=== PATIENT | male | born 1970 | race Caucasian/White ===

== ENCOUNTER 2017-02-22 13:57 | Inpatient (IN) | payer MEDICAID ==
[~2017-02-22] VITALS: Ht 170.2 cm; Wt 100.0 kg
--- NOTE | 2017-02-22 14:11 | ERA ---
ER Documentation Chief Complaint Date/Time DATE: 02/22/17 TIME: 14:11 Chief Complaint dizziness, nausea, vomiting HPI The patient is a 46-year-old male, presenting to the ER because of acute dizziness, associated with nausea, vomiting intermittently for 1 week and headache for the last 2 days. He denies fever, chills, neck pain, chest pain, dyspnea, abdominal pain, dysuria, diarrhea. He does not smoke nor drink nor does illicit drug Past medical history: Diabetes mellitus, hypertension Past surgical history: None ROS All systems reviewed and are negative except as per history of present illness. Medications Home Meds Active Scripts Meclizine Hcl* (Antivert*) 12.5 Mg Tab, 25 MG PO Q6H Y for DIZZINESS, #20 TAB Prov:ANNA BOWEN MD 02/22/17 Reported Medications Metoprolol Tartrate* (Lopressor*) Unknown Strength Tab, PO BID, #60 TAB 02/22/17 Insulin Glargine* (Lantus*) 100 Unit/Ml Soln, 20 UNIT SC QAM, #1 VIAL 02/22/17 Clopidogrel Bisulfate (Clopidogrel) 75 Mg Tablet, 75 MG PO DAILY, #30 TAB 02/22/17 Metformin Hcl* (Metformin Hcl*) 1,000 Mg Tablet, 1000 MG PO WITH BREAKFAST DINNE , #30 TAB 02/22/17 Lisinopril* (Lisinopril*) 10 Mg Tablet, 10 MG PO DAILY, #30 TAB 02/22/17 Allergies Allergies: Coded Allergies: No Known Allergy (Unverified , 02/22/17) Physical Exam Vitals Vital Signs Date Time Temp Pulse Resp B/P Pulse Ox O2 Delivery O2 Flow Rate FiO2 02/22/17 17:00 80 160/110 02/22/17 16:00 80 16 159/119 99 Room Air 02/22/17 15:39 80 16 172/105 99 Room Air 02/22/17 14:03 98.2 100 20 197/122 99 Physical Exam Const: No acute distress. Head: Atraumatic. Eyes: Normal Conjunctiva. ENT: Normal External Ears, Nose and Mouth. Neck: Full range of motion. No meningismus. Resp: Clear to auscultation bilaterally. Cardio: Regular rate and rhythm, no murmurs. Abd: Soft, non distended, normal bowel sounds, non tender. Skin: No petechiae or rashes. Back: No midline or flank tenderness. Ext: No cyanosis, or edema. Neur: Awake and alert. No focal deficit Psych: Normal Mood and Affect. Result Diagram: 02/22/17 1430 02/22/17 1430 Results 24 hrs Laboratory Tests Test 02/22/17 14:30 White Blood Count 13.010^3/ul Red Blood Count 5.4310^6/ul Hemoglobin 15.6g/dl Hematocrit 46.0% Mean Corpuscular Volume 84.7fl Mean Corpuscular Hemoglobin 28.7pg Mean Corpuscular Hemoglobin Concent 33.9g/dl Red Cell Distribution Width 13.6% Platelet Count 12149^3/UL Mean Platelet Volume 11.2fl Neutrophils % 51.8% Lymphocytes % 37.8% Monocytes % 7.3% Eosinophils % 2.5% Basophils % 0.4% Nucleated Red Blood Cells % 0.0/100WBC Neutrophils # 6.710^3/ul Lymphocytes # 4.910^3/ul Monocytes # 1.010^3/ul Eosinophils # 0.310^3/ul Basophils # 0.110^3/ul Nucleated Red Blood Cells # 0.010^3/ul Prothrombin Time 13.7Sec Prothrombin Time Ratio 1.1 INR International Normalized Ratio 1.05 Activated Partial Thromboplast Time 29.2Sec Sodium Level 140mmol/L Potassium Level 4.3mmol/L Chloride Level 107mmol/L Carbon Dioxide Level 15mmol/L Anion Gap 22 Blood Urea Nitrogen 14mg/dl Creatinine 0.73mg/dl Glucose Level 220mg/dl Calcium Level 9.6mg/dl Troponin I < 0.012ng/ml Current Medications Medications (Trade) Dose Ordered Sig/Jeffery Route PRN Reason Start Time Stop Time Status Last Admin Dose Admin Ondansetron HCl (Zofran Inj) 4 mg ONCE STAT IV 02/22/17 14:16 02/22/17 14:18 DC 02/22/17 14:32 Meclizine HCl (Antivert) 25 mg ONCE ONCE PO 02/22/17 14:30 02/22/17 14:31 DC 02/22/17 14:32 Labetalol HCl (Labetalol) 20 mg ONCE ONCE IV 02/22/17 16:00 02/22/17 16:01 DC 02/22/17 15:54 Labetalol HCl (Labetalol) 20 mg ONCE ONCE IV 02/22/17 16:30 02/22/17 16:31 DC Ondansetron HCl (Zofran Inj) 4 mg ONCE STAT IV 02/22/17 17:56 02/22/17 17:57 DC Clopidogrel Bisulfate (plaVIX) 75 mg DAILY PO 02/23/17 09:00 UNV Insulin Glargine (Lantus) 20 unit QAM SC 02/23/17 09:00 UNV Lisinopril (Zestril) 10 mg DAILY PO 02/23/17 09:00 UNV Metformin HCl (Glucophage) 1,000 mg WITH BREAKFAST DINNE PO 02/23/17 08:00 UNV Metoprolol Tartrate (Lopressor) 25 mg BID PO 02/22/17 21:00 UNV Hydralazine HCl (Apresoline) 10 mg Q6H PRN IV sbp>160mmhg 02/22/17 18:30 UNV Insulin Aspart (Novolog Insulin Pen) NOVOLOG *MODERATE* ALGORITHM WITH MEALS BEDTIME SC 02/22/17 21:00 UNV Miscellaneous Information (* Miscellaneous Pharmacy Order) HYPOGLYCEMIA PROTOCOL w... ONCE ONCE XX 02/22/17 18:30 02/22/17 18:31 UNV Miscellaneous Information (* Miscellaneous Pharmacy Order) Discontinue all previ... ONCE ONCE XX 02/22/17 18:30 02/22/17 18:31 UNV Docusate Sodium (Colace) 100 mg BID PO 02/22/17 21:00 UNV Ondansetron HCl (Zofran Inj) 4 mg Q6H PRN IV NAUSEA AND/OR VOMITING 02/22/17 18:30 UNV Acetaminophen (Tylenol Tab) 650 mg Q6H PRN PO PAIN AND OR ELEVATED TEMP 02/22/17 18:30 UNV Famotidine (Pepcid Iv) 20 mg BID IV 02/22/17 18:30 UNV Procedures/[address] [address] Radiology Main Line: [phone] DIAGNOSTIC IMAGING REPORT Patient: RAY VICKERS : 1970 Age: 46 Sex: M MR #: [id number] [facility] #: [id number] DOS: 02/22/17 1416 Ordering MD: ANNA BOWEN MD Location: E/R Room/Bed: PROCEDURE: CT Brain without. CLINICAL INDICATION: Syncope TECHNIQUE: A CT of the brain was performed on a multi-slice CT scanner utilizing axial sections from the skull base through the vertex without contrast. Coronal and sagittal reconstructed images were provided. One or more of the following does reduction techniques were used: Automated exposure control; adjustment of the mA and/or kV according to patient size; use of the aorta of reconstruction technique. Images were reviewed on a high-resolution PACS workstation. The exam CTDI = 44.33 mGy. The exam DLP = 720.23 mGy-cm. COMPARISON: None available FINDINGS: The ventricles and sulci are symmetric and normal in size and morphology. There is no evidence of intracranial hemorrhage, mass effect, edema or midline shift. No abnormal intra-axial or extra-axial fluid collections are seen. The helms/white matter differentiation is well preserved. The osseous structures and visualized sinuses are unremarkable. The mastoid air cells are clear. The surrounding soft tissue scalp and bony calvarium are intact and normal. IMPRESSION: 1. Unremarkable CT brain. RPTAT: KK .Jay Samson MD, MD Date Time Electronically viewed and signed by .Jay Samson MD, MD on 2016 15:33 .B/ CC: ANNA BOWEN MD EKG: Read by emergency physician Rate/Rhythm: Normal Sinus Rhythm 100 beats/min QRS, ST, T-waves: No ST elevation, no T inversion Impression: Normal EKG MEDICAL MAKING DECISION: The patient is a 46-year-old male, presenting with acute dizziness of unclear etiology, acute accelerated hypertension. He was treated with Zofran 4 mg IV 2 for nausea, Antivert 25 mg p.o. for dizziness, labetalol 20 mg IV 2 for acute accelerated hypertension with good response. However patient remained nauseated and dizzy. The differential diagnoses considered include but are not limited to central causes such as cerebellar infarct, cerebellar hemorrhage, cerebellar tumor, acoustic neuroma, peripheral causes such as benign positional vertigo, labyrinthitis, medication, Meniere's disease. Departure Diagnosis: Primary Impression: Dizziness Additional Impression: Accelerated hypertension Condition: Stable Comments I discussed the findings with the patient. I discussed the patient with the hospitalist who was made aware of the lab, the treatment, the patient condition. The patient is admitted to [facility] at 6 pm ANNA BOWEN MD Feb 22, 2017 14:11
[2017-02-22] MEDS ORDERED: ONDANSETRON 4 MG INJ IV STA ×2 (14:16→17:56)
[2017-02-22] MEDS ORDERED: MECLIZINE 12.5 MG TAB PO ONE (14:30)
[2017-02-22] MEDS ORDERED: LISI10TA2 PO (14:30)
[2017-02-22] MEDS ORDERED: METF1000 PO (14:30)
[2017-02-22] MEDS ORDERED: LANT3I SC (14:31)
[2017-02-22] MEDS ORDERED: CLOP75TA27 PO (14:31)
[2017-02-22] MEDS ORDERED: METO-448 PO (14:42)
[2017-02-22 14:43] LABS: ADD SCAN DIFF NO
[2017-02-22 14:46] LABS: BASOPHIL # 0.1 10^3/ul (0.0-0.1); BASOPHILS % 0.4 % (0.0-2.0); EOSINOPHILS # 0.3 10^3/ul (0.0-0.5); EOSINOPHILS % 2.5 % (0.0-7.0); HEMOGLOBIN 15.6 g/dl (14.0-18.0); LYMPHOCYTES # 4.9 10^3/ul (0.8-2.9); LYMPHOCYTES % 37.8 % (15.0-51.0); MEAN CORPUSCULAR HEMOGLOBIN 28.7 pg (29.0-33.0); MEAN CORPUSCULAR HGB CONC 33.9 g/dl (32.0-37.0); MEAN CORPUSCULAR VOLUME 84.7 fl (82.0-101.0); MEAN PLATELET VOLUME 11.2 fl (7.4-10.4); MONOCYTES % 7.3 % (0.0-11.0); NEUTROPHIL # 6.7 10^3/ul (1.6-7.5); NEUTROPHILS % 51.8 % (39.0-77.0); PLATELET COUNT 232 10^3/UL (140-415); RED BLOOD COUNT 5.43 10^6/ul (4.70-6.10); RED CELL DISTRIBUTION WIDTH 13.6 % (11.5-14.5)
[2017-02-22 14:56] LABS: CHLORIDE 107 mmol/L (97-110); POTASSIUM 4.3 mmol/L (3.5-5.1); SODIUM 140 mmol/L (135-144)
[2017-02-22 14:57] LABS: INR 1.05; PROTIME 13.7 Sec (12.2-14.2); PT RATIO 1.1
[2017-02-22 14:58] LABS: PARTIAL THROMBOPLASTIN TIME 29.2 Sec (25.0-35.0)
[2017-02-22 14:59] LABS: ANION GAP 22 (8-16); BLOOD UREA NITROGEN 14 mg/dl (7-20); CARBON DIOXIDE 15 mmol/L (21-31); CREATININE 0.73 mg/dl (0.61-1.24); GLUCOSE 220 mg/dl (70-220)
[2017-02-22 15:00] LABS: CALCIUM 9.6 mg/dl (8.4-10.2)
[2017-02-22 15:29] LABS: TROPONIN-I < 0.012 ng/ml (0.00-0.12)
--- NOTE | 2017-02-22 15:34 | RADRPT ---
PROCEDURE: CT Brain without. CLINICAL INDICATION: Syncope TECHNIQUE: A CT of the brain was performed on a multi-slice CT scanner utilizing axial sections fr om the skull base through the vertex without contrast. Coronal and sagittal reconstructed images w ere provided. One or more of the following does reduction techniques were used: Automated exposure control; adjustment of the mA and/or kV according to patient size; use of the aorta of reconstructi on technique. Images were reviewed on a high-resolution PACS workstation. The exam CTDI = 44.33 mGy . The exam DLP = 720.23 mGy-cm. COMPARISON: None available FINDINGS: The ventricles and sulci are symmetric and normal in size and morphology. There is no evidence of i ntracranial hemorrhage, mass effect, edema or midline shift. No abnormal intra-axial or extra-axial fluid collections are seen. The helms/white matter differentiation is well preserved. The osseous structures and visualized sinuses are unremarkable. The mastoid air cells are clear. Th e surrounding soft tissue scalp and bony calvarium are intact and normal. IMPRESSION: 1. Unremarkable CT brain. RPTAT: KK .Jay Samson MD, MD Date Time Electronically viewed and signed by .Jay Samson MD, MD on 02/22/2017 15:33 .B/
[2017-02-22] MEDS ORDERED: LABETALOL HCL 20MG INJ IV ONE ×2 (16:00→16:30)
[2017-02-22] MEDS ORDERED: MECL12.574 PO (16:23)
[2017-02-22] MEDS ORDERED: ACETAMINOPHEN 325 MG TAB PO PRN (18:30)
[2017-02-22] MEDS ORDERED: SOD CHLORIDE 0.9% 1,000 ML IV SCH (19:00)
[2017-02-22] MEDS ORDERED: GLUCAGON 1 MG INJ IM PRN (19:30)
[2017-02-22] MEDS ORDERED: GLUCOSE GEL 15 GRAM TUBE BUCCAL PRN (19:30)
[2017-02-22] MEDS ORDERED: GLUCOSE GEL 15 GRAM TUBE PO PRN ×2 (19:30)
[2017-02-22] MEDS ORDERED: DEXTROSE 50% 50 ML SYRINGE IV PRN ×2 (19:30)
--- NOTE | 2017-02-22 19:38 | RADRPT ---
PROCEDURE: XR Chest. CLINICAL INDICATION: Chest pain TECHNIQUE: AP Portable chest. COMPARISON: None available FINDINGS: The soft tissues and bones are remarkable for thoracic spondylosis and bilateral acromioclavicular o steoarthropathy. A 5 mm calcified granuloma is noted in the left costophrenic angle. This compatib le with prior exposure to granulomatous disease.. No focal infiltrates, masses, or effusions are no gonzales. The mediastinum and heart are normal. No pneumothorax is present. IMPRESSION: 1. No radiographic evidence for acute cardiopulmonary disease. 2. 5 mm calcified granuloma in the left costophrenic angle. 3. 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 RPTAT: HDC .Dara Leblanc MD, Date Time Electronically viewed and signed by .Dara Leblanc MD, on 02/22/2017 19:38 .C/
[2017-02-22] MEDS: FAMOTIDINE 20 MG INJ IV SCH (19:59)
--- NOTE | 2017-02-22 20:04 | RADRPT ---
PROCEDURE: Carotid ultrasound CLINICAL INDICATION: Dizziness, carotid bruits TECHNIQUE: Sherman scale, color doppler, spectral doppler ultrasound of the bilateral carotid and tomeka tebral arteries. This study indirectly references the measurement of the distal ICA diameter as the denominator for s tenosis measurement. Validated velocity measurements with angiographic measurements, velocity criter ia are extrapolated from diameter data as defined by: *Cartoid artery stenosis: sherman-scale and Doppl er US diagnosis. Society of Radiologists in Ultrasound Consensus Conference. Radiology 2003; 229: 34 0-346. SRU Consensus Conference Criteria for the Diagnosis of Carotid Artery Stenosis* Degree of Stenosis, % ICA PSV, cm/sec Plaque Estimate, % ICA/CCA PSV Ratio Normal <125 None <2.0 <50 <125 <50 <2.0 50 69 125-230 >50 2.0-4.0 >70 but less than near occlusion >230 >50 <4.0 Near occlusion High, low, or undetectable Visible Variable Total occlusion Undetectable Visible, no detectable lumen Not applicable COMPARISON: No prior studies are available for comparison. FINDINGS: Location Right CCA98 cm/sec Prox ICA 52 cm/sec Mid ICA41 cm/sec Dist ICA55 cm/sec ECA79 cm/sec ICA/CCA0.6 Left CCA96 cm/sec Prox ICA 61 cm/sec Mid ICA62 cm/sec Dist ICA63 cm/sec ECA94 cm/sec ICA/CCA0.7 Plaque burden: Noncalcified plaques are present within the right carotid bulb and left common caroti d artery which do not appear to be hemodynamically significant. Antegrade flow is seen within the vertebral arteries bilaterally. IMPRESSION: Noncalcified plaques are present within the right carotid bulb and left common carotid artery which do not appear to be hemodynamically significant. RPTAT: AADD .El Castro MD, Date Time Electronically viewed and signed by .El Castro MD, on 02/22/2017 20:04 .B/
[2017-02-22] MEDS: METOPROLOL 25 MG TAB PO SCH (21:00)
[2017-02-22] MEDS: INSULIN ASPART [NOVOLOG] 3 ML PEN SC SCH (21:00)
[2017-02-22] MEDS: ONDANSETRON 4 MG INJ IV PRN (21:41)
[2017-02-22] MEDS: DOCUSATE SODIUM 100 MG CAP PO SCH (22:37)
[2017-02-22 23:30] VITALS: TEMP 98.1
[2017-02-22] MEDS ORDERED: METOCLOPRAMIDE 10 MG INJ IV PRN (23:30)
[2017-02-22 23:40] LABS: CREATINE KINASE 83 IU/L (23-200)
[2017-02-22 23:49] LABS: CK-MB 0.47 ng/ml (0.0-2.4)
[2017-02-22 23:56] LABS: TROPONIN-I < 0.010 ng/ml (0.00-0.12)
[2017-02-23] VITALS (10 sets, daily range): BP systolic 112–189; BP diastolic 56–132; PULSE 93–115; RESP 16–20; Ht 170.2 cm; Wt 100.0 kg
[2017-02-23] MEDS ORDERED: LABETALOL HCL 20MG INJ IV ONE (00:30)
[2017-02-23] MEDS: ONDANSETRON 4 MG INJ IV PRN ×2 (04:37→12:40)
[2017-02-23] MEDS: hydrALAzine 20 MG INJ IV PRN (04:37)
--- NOTE | 2017-02-23 07:19 | HP ---
DATE OF ADMISSION: 02/22/2017 PRESENTING COMPLAINT: Dizziness, nausea, vomiting. HISTORY OF PRESENTING COMPLAINT: Mr. Hernandez is a 46-year-old male with a past medical history of high blood pressure and diabetes as well as two TIAs in the past who presents to the emergency room today with occipital headaches and dizziness that has been going on for a week intermittently and now nausea, associated occasional vomiting that has been going on for the last 3 days. The patient came in today at the behest of his family when symptoms did not improve and was found to have severely elevated blood pressures in the ER and uncontrolled diabetes as evidenced by high blood sugars He denies fever, chest pain, abdominal pain. There is no blood in his vomit and there has been no blood in his stool. He denies black stools. He denies flank pain. He denies focal deficits. He denied slurred speech. PAST MEDICAL HISTORY: Positive for diabetes, high blood pressure, two TIAs in the past, the first of which was on 11/06/2016. PAST SURGICAL HISTORY: The patient denies. SOCIAL HISTORY: The patient quit tobacco use after four years ten years ago and he quit drinking alcohol completely after his first TIA. He denies illicit drug use. He is and has no children. HOME MEDICATIONS: Reviewed and of note is that the patient is on Plavix therapy instead of aspirin which is reconciled. For a complete list, please review the patient in nursing notes. FAMILY HISTORY: Positive for a cardiac arrest in his father at age 74. No other significant family history. ALLERGIES: HE HAS NO KNOWN DRUG ALLERGIES. PHYSICAL EXAMINATION: VITAL SIGNS: When he first came to the ER, temperature 98.2, pulse 100, respirations 20, blood pressure 197/122, saturations 99% on room air. At the time of my evaluation, blood pressure had improved to 160/110. GENERAL: The patient did look somewhat lethargic. HEENT: Head is normocephalic. Pupils are equal and reactive. Mucous membranes were moist. Posterior pharynx was clear of erythema and exudate, but he did have a visible deviation of the angle of the mouth to the left side, which the family reports is new. NECK: Supple without adenopathy or JVD. CHEST: Clear to auscultation with good air entry on both sides. CARDIOVASCULAR: S1 and 2, no added sounds or murmurs. ABDOMEN: Soft, nontender, nondistended with normoactive bowel sounds. EXTREMITIES: He has no lower extremity edema. NEUROLOGIC: Also, he has no focal deficits. He has good automation driver bilaterally. Other than the facial asymmetry, there were no other significant neurologic findings. Speech was clear. There were no gross focal cranial nerve deficits. SKIN: Devoid of rash or jaundice. PSYCHIATRIC: He was calm, cooperative with exam. LABORATORY VALUES: The following abnormalities were significant: He had a CO2 level of 15. He also had a glucose level of 220. First troponin is negative. He also had a mild leukocytosis of 13,000, hemoglobin was normal, platelets were normal. Coagulation profile was unremarkable. His EKG was reviewed by myself, was normal sinus rhythm without evidence of ST elevations or depressions with tachycardia with a rate of 100 beats per minute. There is no chest x-ray at this time; however, a CT of the brain was read by Radiology and was read as unremarkable. IMPRESSION: A 46-year-old male who presents to the emergency room today with complaints of dizziness, headaches, nausea and vomiting managed as follows: 1. Intractable headache and dizziness concerning for a Hypertensive encephalopathy versus post circulation stroke in this patient with the following comorbidities. 2. Uncontrolled hypertensive urgency 3. Poorly controlled diabetes mellitus type 2. 4. Leukocytosis, likely reactive. 5. Mild metabolic acidosis, might be secondary to intractable nausea and vomiting. 6. History of transient ischemic attacks x2 in the past. PLAN: Plan of care is to admit the patient to telemetry for a complete stroke workup. The patient will benefit from an MRI of the brain, carotid Dopplers if MRI is positive and a 2D echocardiogram. Will also complete an ACS rule out as well. Resume his home medications for diabetes and high blood pressure control and titrate for improved control while in house. I will also screen for thyroid disease. Put him on sliding scale insulin and screen for dyslipidemia. Continue him on Plavix instead of aspirin in addition to his other medications. He will benefit from physical therapy eval, and if indicated, Neurology eval. I discussed plan of care with the patient. I have answered questions. For prophylaxis, he will be on SCDs and Pepcid. Dictated By: ABDULLAHI HARDWICK MD, BA/JULIO Conf#: [id number] DID#: [id number]
[2017-02-23] MEDS: metFORMIN 500 MG TAB PO SCH ×2 (08:21→17:59)
[2017-02-23] MEDS: CLOPIDOGREL 75 MG TAB PO SCH (08:23)
[2017-02-23] MEDS: DOCUSATE SODIUM 100 MG CAP PO SCH ×2 (08:23→21:45)
[2017-02-23] MEDS: METOPROLOL 25 MG TAB PO SCH (08:23)
[2017-02-23] MEDS: FAMOTIDINE 20 MG INJ IV SCH ×2 (08:23→21:45)
[2017-02-23] MEDS: INSULIN ASPART [NOVOLOG] 3 ML PEN SC SCH ×4 (08:31→21:00)
[2017-02-23] MEDS ORDERED: LISINOPRIL 10 MG TAB PO SCH (09:00)
[2017-02-23] MEDS: INSULIN GLARGINE [LANtus] 3 ML PEN SC SCH (10:33)
[2017-02-23 10:59] LABS: ADD SCAN DIFF NO
[2017-02-23 11:14] LABS: BASOPHILS % 0.2 % (0.0-2.0); EOSINOPHILS # 0.1 10^3/ul (0.0-0.5); EOSINOPHILS % 0.3 % (0.0-7.0); LYMPHOCYTES # 2.9 10^3/ul (0.8-2.9); LYMPHOCYTES % 17.2 % (15.0-51.0); MEAN CORPUSCULAR HEMOGLOBIN 29.2 pg (29.0-33.0); MEAN CORPUSCULAR HGB CONC 34.1 g/dl (32.0-37.0); MEAN CORPUSCULAR VOLUME 85.8 fl (82.0-101.0); MEAN PLATELET VOLUME 10.8 fl (7.4-10.4); MONOCYTE # 1.1 10^3/ul (0.3-0.9); MONOCYTES % 6.4 % (0.0-11.0); NEUTROPHIL # 12.6 10^3/ul (1.6-7.5); NEUTROPHILS % 75.5 % (39.0-77.0); PLATELET COUNT 282 10^3/UL (140-415); RED BLOOD COUNT 5.13 10^6/ul (4.70-6.10); RED CELL DISTRIBUTION WIDTH 13.5 % (11.5-14.5); WHITE BLOOD COUNT 16.7 10^3/ul (4.8-10.8)
[2017-02-23 11:28] LABS: CREATINE KINASE 82 IU/L (23-200)
[2017-02-23 11:29] LABS: POTASSIUM 4.4 mmol/L (3.5-5.1)
[2017-02-23 11:31] LABS: CREATININE 0.7 mg/dl (0.61-1.24)
[2017-02-23 11:32] LABS: CALCIUM 9.3 mg/dl (8.4-10.2); CHOL/HDL RATIO 4.8 RATIO
[2017-02-23 11:38] LABS: CK-MB 0.55 ng/ml (0.0-2.4); TROPONIN-I < 0.012 ng/ml (0.00-0.12)
[2017-02-23] MEDS ORDERED: LISINOPRIL 20 MG TAB PO ONE (12:00)
[2017-02-23] MEDS ORDERED: METOPROLOL 25 MG TAB PO ONE (12:00)
--- NOTE | 2017-02-23 12:02 | PN ---
Date/Time of Note Date/Time of Note DATE: 02/23/17 TIME: 11:56 Assessment/Plan VTE Prophylaxis VTE Prophylaxis Intervention: SCD's Lines/Catheters IV Catheter Type (from Nrs): Peripheral IV Assessment/Plan Assessment/Plan A 46-year-old male who presents to the emergency room today with complaints of dizziness, headaches, nausea and vomiting managed as follows: 1. Intractable headache, nausea and dizziness:likely Hypertensive encephalopathy but symptoms are also concerning for a Posterior circulation stroke in this patient with the following comorbidities. 2. Uncontrolled hypertensive urgency with accelerated hypertension. 3. Poorly controlled diabetes mellitus type 2. A1C 7.9 4. Leukocytosis, likely reactive. 5. Mild metabolic acidosis, might be secondary to intractable nausea and vomiting. 6. History of transient ischemic attacks x2 in the past. PLAN: * antiemetics/ Clear liquids / RTC reglan / stool softeners * MRI / echo/ PT eval still pending * Titrate antihypertensives for better BP control * Continue current care, will follow Subjective 24 Hr Interval Summary Free Text/Dictation Patient still having a lot of nasuea and dizziness Exam/Review of Systems Vital Signs Vitals Vital Signs Date Time Temp Pulse Resp B/P Pulse Ox O2 Delivery O2 Flow Rate FiO2 02/23/17 08:06 107 02/23/17 07:45 98.4 18 161/95 93 02/23/17 06:32 Room Air Intake and Output 02/22/17 02/22/17 02/23/17 15:00 23:00 07:00 Intake Total 450 ml Output Total 200 ml Balance 250 ml Exam HEENT: Head is normocephalic. Pupils are equal and reactive. Mucous membranes were moist. Posterior pharynx was clear of erythema and exudate, but he did have a visible deviation of the angle of the mouth to the left side, active vomiting NECK: Supple without adenopathy or JVD. CHEST: Clear to auscultation with good air entry on both sides. CARDIOVASCULAR: S1 and 2, no added sounds or murmurs. ABDOMEN: Soft, nontender, nondistended with normoactive bowel sounds. EXTREMITIES: He has no lower extremity edema. NEUROLOGIC: Also, he has no focal deficits. He has good copy writer bilaterally. Other than the facial asymmetry, there were no other significant neurologic findings. Speech was clear. There were no gross focal cranial nerve deficits. SKIN: Devoid of rash or jaundice. PSYCHIATRIC: He was calm, cooperative with exam. Results Result Diagram: 02/23/17 1040 02/23/17 1040 Results 24 hrs Laboratory Tests Test 02/22/17 14:30 02/22/17 22:55 02/23/17 00:31 02/23/17 07:50 White Blood Count 13.0 H Red Blood Count 5.43 Hemoglobin 15.6 Hematocrit 46.0 Mean Corpuscular Volume 84.7 Mean Corpuscular Hemoglobin 28.7 L Mean Corpuscular Hemoglobin Concent 33.9 Red Cell Distribution Width 13.6 Platelet Count 232 Mean Platelet Volume 11.2 H Neutrophils % 51.8 Lymphocytes % 37.8 Monocytes % 7.3 Eosinophils % 2.5 Basophils % 0.4 Nucleated Red Blood Cells % 0.0 Neutrophils # 6.7 Lymphocytes # 4.9 H Monocytes # 1.0 H Eosinophils # 0.3 Basophils # 0.1 Nucleated Red Blood Cells # 0.0 Prothrombin Time 13.7 Prothrombin Time Ratio 1.1 INR International Normalized Ratio 1.05 Activated Partial Thromboplast Time 29.2 Sodium Level 140 Potassium Level 4.3 Chloride Level 107 Carbon Dioxide Level 15 L Anion Gap 22 H Blood Urea Nitrogen 14 Creatinine 0.73 Glucose Level 220 Calcium Level 9.6 Troponin I < 0.012 < 0.010 Creatine Kinase 83 Creatine Kinase Index 0.6 Creatinine Kinase MB (Mass) 0.47 Bedside Glucose 195 183 Test 02/23/17 10:40 White Blood Count 16.7 #H Red Blood Count 5.13 Hemoglobin 15.0 Hematocrit 44.0 Mean Corpuscular Volume 85.8 Mean Corpuscular Hemoglobin 29.2 Mean Corpuscular Hemoglobin Concent 34.1 Red Cell Distribution Width 13.5 Platelet Count 282 # Mean Platelet Volume 10.8 H Neutrophils % 75.5 Lymphocytes % 17.2 Monocytes % 6.4 Eosinophils % 0.3 Basophils % 0.2 Nucleated Red Blood Cells % 0.0 Neutrophils # 12.6 H Lymphocytes # 2.9 Monocytes # 1.1 H Eosinophils # 0.1 Basophils # 0.0 Nucleated Red Blood Cells # 0.0 Sodium Level 140 Potassium Level 4.4 Chloride Level 104 Carbon Dioxide Level 21 Anion Gap 19 H Blood Urea Nitrogen 16 Creatinine 0.70 Glucose Level 211 Hemoglobin A1c 7.9 H Calcium Level 9.3 Creatine Kinase 82 Creatine Kinase Index 0.7 Creatinine Kinase MB (Mass) 0.55 Troponin I < 0.012 Triglycerides Level 87 Cholesterol Level 191 LDL Cholesterol, Calculated 135 HDL Cholesterol 39 Cholesterol/HDL Ratio 4.8 Thyroid Stimulating Hormone (TSH) Pending Medications Medications Current Medications Clopidogrel Bisulfate (plaVIX) 75 mg DAILY PO Last administered on 02/23/17 08: 23; Admin Dose 75 MG; Start 02/23/17 at 09:00 Insulin Glargine (Lantus) 20 unit QAM SC Last administered on 02/23/17 10:33; Admin Dose 20 UNIT; Start 02/23/17 at 09:00 Lisinopril (Zestril) 10 mg DAILY PO Last administered on 02/23/17 08:23; Admin Dose 10 MG; Start 02/23/17 at 09:00 Metoprolol Tartrate (Lopressor) 25 mg BID PO Last administered on 02/23/17 08: 23; Admin Dose 25 MG; Start 02/22/17 at 21:00 Hydralazine HCl (Apresoline) 10 mg Q6H PRN IV sbp>160mmhg Last administered on 02/23/17 04:37; Admin Dose 10 MG; Start 02/22/17 at 18:30 Docusate Sodium (Colace) 100 mg BID PO Last administered on 02/23/17 08:23; Admin Dose 100 MG; Start 02/22/17 at 21:00 Ondansetron HCl (Zofran Inj) 4 mg Q6H PRN IV NAUSEA AND/OR VOMITING Last administered on 02/23/17 04:37; Admin Dose 4 MG; Start 02/22/17 at 18:30 Acetaminophen (Tylenol Tab) 650 mg Q6H PRN PO PAIN AND OR ELEVATED TEMP; Start 02/22/17 at 18:30 Famotidine (Pepcid Iv) 20 mg BID IV Last administered on 02/23/17 08:23; Admin Dose 20 MG; Start 02/22/17 at 19:30 Miscellaneous Information 1 ea NOTE XX ; Start 02/22/17 at 19:30 Glucose (Glutose) 15 gm Q15M PRN PO DECREASED GLUCOSE; Start 02/22/17 at 19:30 Glucose (Glutose) 22.5 gm Q15M PRN PO DECREASED GLUCOSE; Start 02/22/17 at 19:30 Dextrose (D50w Syringe) 25 ml Q15M PRN IV DECREASED GLUCOSE; Start 02/22/17 at 19:30 Dextrose (D50w Syringe) 50 ml Q15M PRN IV DECREASED GLUCOSE; Start 02/22/17 at 19:30 Glucagon (Glucagen) 1 mg Q15M PRN IM DECREASED GLUCOSE; Start 02/22/17 at 19:30 Glucose (Glutose) 15 gm Q15M PRN BUCCAL DECREASED GLUCOSE; Start 02/22/17 at 19: 30 Metoclopramide HCl (Reglan) 10 mg ONCE PRN IV NAUSEA Last administered on t 00:07; Admin Dose 10 MG; Start 02/22/17 at 23:30; Stop 02/23/17 at 23:29 Procedures Procedures PROCEDURE: Carotid ultrasound CLINICAL INDICATION: Dizziness, carotid bruits TECHNIQUE: Sherman scale, color doppler, spectral doppler ultrasound of the bilateral carotid and vertebral arteries. This study indirectly references the measurement of the distal ICA diameter as the denominator for stenosis measurement. Validated velocity measurements with angiographic measurements, velocity criteria are extrapolated from diameter data as defined by: *Cartoid artery stenosis: sherman-scale and Doppler US diagnosis. Society of Radiologists in Ultrasound Consensus Conference. Radiology 2003; 229: 340-346. SRU Consensus Conference Criteria for the Diagnosis of Carotid Artery Stenosis* Degree of Stenosis, % ICA PSV, cm/sec Plaque Estimate, % ICA/CCA PSV Ratio Normal <125 None <2.0 <50 <125 <50 <2.0 50 69 125-230 >50 2.0-4.0 >70 but less than near occlusion >230 >50 <4.0 Near occlusion High, low, or undetectable Visible Variable Total occlusion Undetectable Visible, no detectable lumen Not applicable COMPARISON: No prior studies are available for comparison. FINDINGS: Location Right CCA 98 cm/sec Prox ICA 52 cm/sec Mid ICA 41 cm/sec Dist ICA 55 cm/sec ECA 79 cm/sec ICA/CCA 0.6 Left CCA 96 cm/sec Prox ICA 61 cm/sec Mid ICA 62 cm/sec Dist ICA 63 cm/sec ECA 94 cm/sec ICA/CCA 0.7 Plaque burden: Noncalcified plaques are present within the right carotid bulb and left common carotid artery which do not appear to be hemodynamically significant. Antegrade flow is seen within the vertebral arteries bilaterally. IMPRESSION: Noncalcified plaques are present within the right carotid bulb and left common carotid artery which do not appear to be hemodynamically significant. RPTAT: AADD .El Castro MD, MD Date Time Electronically viewed and signed by .El Castro MD, MD on 02/22/2017 20:04 .B/ CC: ABDULLAHI HARDWICK BOLATITO M. Feb 23, 2017 12:02
[2017-02-23] MEDS: METOCLOPRAMIDE 10 MG INJ IV SCH ×2 (13:31→18:00)
[2017-02-23 15:03] LABS: THYROID STIMULATING HORMONE 0.326 MIU/L (0.465-4.680)
[2017-02-23] MEDS ORDERED: BISACODYL (EC) 5 MG TAB PO ONE (15:30)
[2017-02-23] MEDS: SOD CHLORIDE 0.9% 1,000 ML IV SCH (16:50)
--- NOTE | 2017-02-23 17:48 | RADRPT ---
Echocardiogram Report Patient Name: RAY VICKERS Gender: Male Date: 1970 Study Date: 23-Feb-2017 [employer] Pilot: [facility] Location: 509 Ref. Physician: ABDULLAHI HARDWICK Quality: Good Procedures: Transthoracic echocardiogram with complete 2D, M-Mode, and doppler examination. Indications: Hypertension. 2D/M Mode Doppler Measurement Value Normal Ranges Measurement Value Normal Ranges LVIDd 2D 4.1 3.5 - 5.6 cm AV Peak [place] 1.3 m/sec LVIDs 2D 3.0 2.1 - 4.1 cm AV Peak PG 7.0 mmHg FS 2D 27.7 % LVOT Peak [place] 1.0 m/sec LVPWd 2D 1.0 0.6 - 1.1 cm LVOT Peak PG 4.0 mmHg IVSd 2D 1.3 0.6 - 1.1 cm MV E Peak [place] 0.6 m/sec IVS/LVPW 2D 1.3 MV A Peak [place] 0.9 m/sec AoR Diam 2D 3.2 2.0 - 3.7 cm MV E/A 0.7 LA/Ao 2D 1 0 - 1 MV Decel Time 141 msec EDV 2D 69.9 cm3 MV E/A 0.7 ESV 2D 26.5 cm3 LA Dimen 2D 3.6 2.3 - 4.0 cm Findings Left Ventricle: Normal left ventricular systolic function. Normal left ventricular cavity size. Sigmoid septum. Ejection fraction is visually estimated at 60 %. Abnormal Diastolic Function. Right Ventricle: Normal right ventricular size. Normal right ventricular systolic function. Left Atrium: The left atrium is normal in size. Right Atrium: The right atrium is normal in size. Mitral Valve: Trace mitral regurgitation. Aortic Valve: Trace aortic valve regurgitation. Tricuspid Valve: Normal appearance and function of the tricuspid valve with trace physiologic regurgitation. Pulmonic Valve: There is trace pulmonic regurgitation. Pericardium: Normal pericardium with no significant pericardial effusion. Aorta: Normal aortic root. IVC: Normal size and normal respiratory collapse consistent with normal right atrial pressure. Conclusions 1.Normal left ventricular systolic function. Normal left ventricular cavity size. Sigmoid septum. Ejection fraction is visually estimated at 60 %. Abnormal Diastolic Function. 2.Trace mitral regurgitation. 3.Trace aortic valve regurgitation. 4.Normal appearance and function of the tricuspid valve with trace physiologic regurgitation. 5.There is trace pulmonic regurgitation. Electronically Signed By: Barrera Fitzpatrick 23-Feb-2017 17:47:24 -0700 Patient Name: RAY VICKERS Study Date: 23-Feb-2017 [id number]
[2017-02-23] MEDS: METOPROLOL 50 MG TAB PO SCH (21:46)
--- NOTE | 2017-02-23 22:09 | RADRPT ---
PROCEDURE: MRI Brain without contrast. CLINICAL INDICATION: Dizziness and headaches TECHNIQUE: An MRI of the brain was performed on a high resolution hi-definition 3.0 Anna MRI scan ner utilizing the following sequences: Sagittal and axial T1 weighted, axial T2 weighted, sagittal T 2 FLAIR, axial diffusion weighted with ADC mapping, an coronal GRE. COMPARISON: CT brain 02/22/2017 FINDINGS: The scalp and calvarium are normal. The paranasal sinuses, orbits, and bilateral mastoid air cells a re normal. No extra-axial fluid collections are present. The ventricles and sulci are normal in siz e and configuration. No evidence of intracranial hemorrhage, mass effect or midline shift is present . On the FLAIR and T2-weighted sequences, hyperintensity is present in the left inferior cerebellar peduncle and location of the vestibular and nuclei, the left brachium pontis, bilateral periventricu lar white matter foci and anterior body of the corpus callosum concerning for early demyelinating di sease. On diffusion weighted sequences, multiple foci of restricted diffusion are noted. Restricte d diffusion is present in the left inferior cerebellar peduncular lesion within the medulla and the a the left brachium pontis concerning for acute non hemorrhagic infarcts or demyelinating disease. Follow-up brain MRI with contrast is recommended. No hypointense signal abnormalities are seen on the GRE images to suggest the presence of blood degradation products. Normal flow voids are visi ble in the proximal intracranial arteries and dural sinuses, indicating patency. IMPRESSION: 1. Multiple FLAIR and T2 hyperintense foci in the left inferior cerebellar peduncle and vestibular nuclei, the left brachium pontis, the bilateral periventricular white matter and body of the corpus callosum . Restricted diffusion noted in the left brachium pontis and inferior cerebellar peduncle with differential diagnosis to include acute demyelinating disease versus acute non hemorrhagic infa rcts with mild microvascular ischemic disease. recommend brain MRI with contrast to further evaluate . A call report was made to Dr. England at 02/23/2017 10:00:36 PM following the completion of the examina tion by the undersigned. RPTAT: HDC .Dara Leblanc MD, MD Date Time Electronically viewed and signed by .Dara Leblanc MD, MD on 02/23/2017 22:08 .C/
[2017-02-23 23:25] LABS: ALBUMIN 4.5 g/dl (3.3-4.9)
[2017-02-23 23:27] LABS: BILIRUBIN,INDIRECT 0.3 mg/dl (0-1.1); BILIRUBIN,TOTAL 0.3 mg/dl (0.2-1.3)
[2017-02-23 23:28] LABS: MAGNESIUM 2.2 mg/dl (1.7-2.5)
[2017-02-24] VITALS (13 sets, daily range): BP systolic 124–171; BP diastolic 72–90; PULSE 74–111; RESP 16–20
[2017-02-24] MEDS: METOCLOPRAMIDE 10 MG INJ IV SCH ×5 (00:11→21:45)
[2017-02-24] MEDS: SOD CHLORIDE 0.9% 1,000 ML IV SCH ×2 (06:26→16:37)
[2017-02-24] MEDS: INSULIN ASPART [NOVOLOG] 3 ML PEN SC SCH ×4 (07:55→21:00)
[2017-02-24] MEDS: LISINOPRIL 20 MG TAB PO SCH (08:32)
[2017-02-24] MEDS: DOCUSATE SODIUM 100 MG CAP PO SCH ×2 (08:32→21:45)
[2017-02-24] MEDS: FAMOTIDINE 20 MG INJ IV SCH ×2 (08:32→21:45)
[2017-02-24] MEDS: METOPROLOL 50 MG TAB PO SCH ×2 (08:33→21:46)
[2017-02-24] MEDS: metFORMIN 500 MG TAB PO SCH ×2 (08:33→17:46)
[2017-02-24] MEDS: CLOPIDOGREL 75 MG TAB PO SCH (08:33)
[2017-02-24] MEDS: INSULIN GLARGINE [LANtus] 3 ML PEN SC SCH (08:42)
[2017-02-24 10:36] LABS: ADD SCAN DIFF NO
[2017-02-24 10:41] LABS: BASOPHIL # 0.1 10^3/ul (0.0-0.1); BASOPHILS % 0.4 % (0.0-2.0); EOSINOPHILS # 0.4 10^3/ul (0.0-0.5); EOSINOPHILS % 3.1 % (0.0-7.0); HEMOGLOBIN 13.9 g/dl (14.0-18.0); LYMPHOCYTES # 4.6 10^3/ul (0.8-2.9); LYMPHOCYTES % 33.6 % (15.0-51.0); MEAN CORPUSCULAR HEMOGLOBIN 29.2 pg (29.0-33.0); MEAN CORPUSCULAR HGB CONC 33.1 g/dl (32.0-37.0); MEAN CORPUSCULAR VOLUME 88.2 fl (82.0-101.0); MEAN PLATELET VOLUME 10.4 fl (7.4-10.4); MONOCYTE # 1.1 10^3/ul (0.3-0.9); MONOCYTES % 8.2 % (0.0-11.0); NEUTROPHIL # 7.5 10^3/ul (1.6-7.5); NEUTROPHILS % 54.3 % (39.0-77.0); PLATELET COUNT 238 10^3/UL (140-415); RED BLOOD COUNT 4.76 10^6/ul (4.70-6.10); WHITE BLOOD COUNT 13.8 10^3/ul (4.8-10.8)
--- NOTE | 2017-02-24 10:41 | CONS ---
Date/Time of Note Date/Time of Note DATE: 02/24/17 TIME: 10:32 Assessment/Plan Assessment/Plan Chief Complaint/Hosp Course 46 year old M with previous history of smoking, uncontrolled hypertension, HLD presenting with persistent dizziness, MRI Brain shows restricted diffuse left brachium pontis and left inferior cerebellum likely acute infarcts, suggestion also to rule out demyelinating disease. Recommendations: -continue on plavix 75 mg daily for secondary stroke prevention -initiate Lipitor 80 mg qhs optimal LDL<70 -HBA1C target <6.5% adjust medications accordingly will order MRI Brain post contrast imaging to rule out enhancing lesions and possibility of demyelinating condition as well as MRA Head to evaluate for focal stenosis of posterior circulation -weight loss, dietary modification -needs speech evaluation -DVT ppx Problems: Consultation Date/Type/Reason Admit Date/Time Feb 22, 2017 at 18:05 Date of Consultation: Feb 24, 2017 Type of Consultation: Neurology Reason for Consultation dizziness, abnormal MRI Referring Provider: ABDULLAHI HARDWICK of Present Illness 46 year old male with a history of diabetes, HTN, 2 previous TIA past October presenting with dizziness at those times presented with occipital headaches, dizziness with nausea on going for a bout a week. On admission he had severly elevated blood pressures, with HBA1C: 7.9%. MRI Brain pursued for further evaluation showed area restricted diffusion left brachium pontis with inferior cerebellar peduncle. Exam concerning for left peripheral 7th palsy, with moderate dysarthria and patient also complains of left sided hearing loss. hearing loss dysarthria dizziness Past Medical History father with history of cardiac disease mothers side of the family with multiple strokes unclear etiology from [facility] Social History Smoking Status: Never smoker Exam/Review of Systems Vital Signs Vitals Vital Signs Date Time Temp Pulse Resp B/P Pulse Ox O2 Delivery O2 Flow Rate FiO2 02/24/17 08:20 77 02/24/17 07:50 98.1 20 155/72 96 02/23/17 06:32 Room Air Intake and Output 02/23/17 02/23/17 02/24/17 15:00 23:00 07:00 Intake Total 720 ml 1100 ml Output Total 400 ml 750 ml Balance 320 ml 350 ml Exam awake and alert oriented x3 no aphasia follows commands well no neglect CN: LUDA, left sided nystagmus, left 7th palsy unable to wrinkle forehead with left lower facial droop as well unable to close eyelid, decreased hearing on the left ear, palate upgoing uvula midline scm/trap intact tongue midline Motor strength is 5/5 Coordination no ataxia Reflexes 1+ UE, trace AJ absent KJ toes downgoing Results Result Diagram: 02/23/17 1040 02/23/17 1040 Results 24 hrs Laboratory Tests Test 02/23/17 10:40 02/23/17 12:08 02/23/17 17:57 02/23/17 21:44 White Blood Count 16.7 #H Red Blood Count 5.13 Hemoglobin 15.0 Hematocrit 44.0 Mean Corpuscular Volume 85.8 Mean Corpuscular Hemoglobin 29.2 Mean Corpuscular Hemoglobin Concent 34.1 Red Cell Distribution Width 13.5 Platelet Count 282 # Mean Platelet Volume 10.8 H Neutrophils % 75.5 Lymphocytes % 17.2 Monocytes % 6.4 Eosinophils % 0.3 Basophils % 0.2 Nucleated Red Blood Cells % 0.0 Neutrophils # 12.6 H Lymphocytes # 2.9 Monocytes # 1.1 H Eosinophils # 0.1 Basophils # 0.0 Nucleated Red Blood Cells # 0.0 Sodium Level 140 Potassium Level 4.4 Chloride Level 104 Carbon Dioxide Level 21 Anion Gap 19 H Blood Urea Nitrogen 16 Creatinine 0.70 Glucose Level 211 Hemoglobin A1c 7.9 H Calcium Level 9.3 Creatine Kinase 82 Creatine Kinase Index 0.7 Creatinine Kinase MB (Mass) 0.55 Troponin I < 0.012 Triglycerides Level 87 Cholesterol Level 191 LDL Cholesterol, Calculated 135 HDL Cholesterol 39 Cholesterol/HDL Ratio 4.8 Thyroid Stimulating Hormone (TSH) 0.326 L Bedside Glucose 181 168 119 Test 02/23/17 23:05 02/24/17 08:08 Magnesium Level 2.2 Total Bilirubin 0.3 Direct Bilirubin 0.00 Indirect Bilirubin 0.3 Aspartate Amino Transf (AST/SGOT) 26 Alanine Aminotransferase (ALT/SGPT) 46 Alkaline Phosphatase 77 Total Protein 8.0 Albumin 4.5 Bedside Glucose 136 Medications Medications Current Medications Clopidogrel Bisulfate (plaVIX) 75 mg DAILY PO Last administered on 02/24/17 08: 33; Admin Dose 75 MG; Start 02/23/17 at 09:00 Insulin Glargine (Lantus) 20 unit QAM SC Last administered on 02/24/17 08:42; Admin Dose 20 UNIT; Start 02/23/17 at 09:00 Hydralazine HCl (Apresoline) 10 mg Q6H PRN IV sbp>160mmhg Last administered on 02/23/17 04:37; Admin Dose 10 MG; Start 02/22/17 at 18:30 Docusate Sodium (Colace) 100 mg BID PO Last administered on 02/24/17 08:32; Admin Dose 100 MG; Start 02/22/17 at 21:00 Ondansetron HCl (Zofran Inj) 4 mg Q6H PRN IV NAUSEA AND/OR VOMITING Last administered on 02/23/17 12:40; Admin Dose 4 MG; Start 02/22/17 at 18:30 Acetaminophen (Tylenol Tab) 650 mg Q6H PRN PO PAIN AND OR ELEVATED TEMP; Start 02/22/17 at 18:30 Famotidine (Pepcid Iv) 20 mg BID IV Last administered on 02/24/17 08:32; Admin Dose 20 MG; Start 02/22/17 at 19:30 Miscellaneous Information 1 ea NOTE XX ; Start 02/22/17 at 19:30 Glucose (Glutose) 15 gm Q15M PRN PO DECREASED GLUCOSE; Start 02/22/17 at 19:30 Glucose (Glutose) 22.5 gm Q15M PRN PO DECREASED GLUCOSE; Start 02/22/17 at 19:30 Dextrose (D50w Syringe) 25 ml Q15M PRN IV DECREASED GLUCOSE; Start 02/22/17 at 19:30 Dextrose (D50w Syringe) 50 ml Q15M PRN IV DECREASED GLUCOSE; Start 02/22/17 at 19:30 Glucagon (Glucagen) 1 mg Q15M PRN IM DECREASED GLUCOSE; Start 02/22/17 at 19:30 Glucose (Glutose) 15 gm Q15M PRN BUCCAL DECREASED GLUCOSE; Start 02/22/17 at 19: 30 Lisinopril (Zestril) 40 mg DAILY PO Last administered on 02/24/17 08:32; Admin Dose 40 MG; Start 02/24/17 at 09:00 Metoprolol Tartrate (Lopressor) 50 mg BID PO Last administered on 02/24/17 08: 33; Admin Dose 50 MG; Start 02/23/17 at 21:00 Metoclopramide HCl 10 mg 10 mg Q6 IV Last administered on 02/24/17 06:24; Admin Dose 10 MG; Start 02/23/17 at 13:00; Stop 02/25/17 at 12:59 Sodium Chloride (NS) 1,000 ml @ 80 mls/hr [id number] IV Last administered on 06:26; Admin Dose 80 MLS/HR; Start 02/23/17 at 15:30 Atorvastatin Calcium (Lipitor) 40 mg HS PO ; Start 02/24/17 at 21:00 MARC JAVED MD Feb 24, 2017 10:41
[2017-02-24 10:54] LABS: POTASSIUM 4.6 mmol/L (3.5-5.1)
[2017-02-24 10:57] LABS: CREATININE 0.86 mg/dl (0.61-1.24)
[2017-02-24] MEDS: hydrALAzine 20 MG INJ IV PRN (11:18)
--- NOTE | 2017-02-24 13:32 | PN ---
Date/Time of Note Date/Time of Note DATE: 02/24/17 TIME: 13:24 Assessment/Plan VTE Prophylaxis VTE Prophylaxis Intervention: SCD's Lines/Catheters IV Catheter Type (from Nrsg): Peripheral IV Assessment/Plan Assessment/Plan A 46-year-old male who presents to the emergency room with complaints of Intractable headache, nausea and dizziness: managed as follows: 1. Probable acute CVA however MRI also concerning for demyelinating disease 7 and 8th nerve palsies noted per neurology Facial assymetry seems to be worsening 2. HTN; s/p hypertensive urgency: improved control 3. Poorly controlled diabetes mellitus type 2. A1C 7.9: improving 4. Leukocytosis, likely reactive. 5. Mild metabolic acidosis, might be secondary to intractable nausea and vomiting. 6. History of transient ischemic attacks x2 in the past. 7. Dizziness and severe nausea: improving PLAN: * Will d/w neurology if starting steroids is an option while we wait for MRA * MRA of brain and neck ordered / appreciate neurology input, f/u recs * ST eval * antiemetics/ Clear liquids / RTC reglan / stool softeners * Titrate antihypertensives for better BP control * Continue current care, will follow Subjective 24 Hr Interval Summary Free Text/Dictation nausea has improved, but speech and facial assymetry seem to be worsening Dizziness is mildly improved but still present Exam/Review of Systems Vital Signs Vitals Vital Signs Date Time Temp Pulse Resp B/P Pulse Ox O2 Delivery O2 Flow Rate FiO2 02/24/17 12:17 82 02/24/17 11:27 97.7 20 163/88 98 02/23/17 06:32 Room Air Intake and Output 02/23/17 02/23/17 02/24/17 15:00 23:00 07:00 Intake Total 720 ml 1100 ml Output Total 400 ml 750 ml Balance 320 ml 350 ml Results Result Diagram: 02/24/17 1026 02/24/17 1026 Results 24 hrs Laboratory Tests Test 02/23/17 17:57 02/23/17 21:44 02/23/17 23:05 02/24/17 08:08 Bedside Glucose 168 119 136 Magnesium Level 2.2 Total Bilirubin 0.3 Direct Bilirubin 0.00 Indirect Bilirubin 0.3 Aspartate Amino Transf (AST/SGOT) 26 Alanine Aminotransferase (ALT/SGPT) 46 Alkaline Phosphatase 77 Total Protein 8.0 Albumin 4.5 Test 02/24/17 10:26 02/24/17 11:29 White Blood Count 13.8 H Red Blood Count 4.76 Hemoglobin 13.9 L Hematocrit 42.0 Mean Corpuscular Volume 88.2 Mean Corpuscular Hemoglobin 29.2 Mean Corpuscular Hemoglobin Concent 33.1 Red Cell Distribution Width 14.0 Platelet Count 238 Mean Platelet Volume 10.4 Neutrophils % 54.3 Lymphocytes % 33.6 Monocytes % 8.2 Eosinophils % 3.1 Basophils % 0.4 Nucleated Red Blood Cells % 0.0 Neutrophils # 7.5 Lymphocytes # 4.6 H Monocytes # 1.1 H Eosinophils # 0.4 Basophils # 0.1 Nucleated Red Blood Cells # 0.0 Sodium Level 141 Potassium Level 4.6 Chloride Level 103 Carbon Dioxide Level 24 Anion Gap 19 H Blood Urea Nitrogen 16 Creatinine 0.86 Glucose Level 157 Calcium Level 9.0 Bedside Glucose 133 Medications Medications Current Medications Clopidogrel Bisulfate (plaVIX) 75 mg DAILY PO Last administered on 02/24/17 08: 33; Admin Dose 75 MG; Start 02/23/17 at 09:00 Insulin Glargine (Lantus) 20 unit QAM SC Last administered on 02/24/17 08:42; Admin Dose 20 UNIT; Start 02/23/17 at 09:00 Hydralazine HCl (Apresoline) 10 mg Q6H PRN IV sbp>160mmhg Last administered on 02/24/17 11:18; Admin Dose 10 MG; Start 02/22/17 at 18:30 Docusate Sodium (Colace) 100 mg BID PO Last administered on 02/24/17 08:32; Admin Dose 100 MG; Start 02/22/17 at 21:00 Ondansetron HCl (Zofran Inj) 4 mg Q6H PRN IV NAUSEA AND/OR VOMITING Last administered on 02/23/17 12:40; Admin Dose 4 MG; Start 02/22/17 at 18:30 Acetaminophen (Tylenol Tab) 650 mg Q6H PRN PO PAIN AND OR ELEVATED TEMP; Start 02/22/17 at 18:30 Famotidine (Pepcid Iv) 20 mg BID IV Last administered on 02/24/17 08:32; Admin Dose 20 MG; Start 02/22/17 at 19:30 Miscellaneous Information 1 ea NOTE XX ; Start 02/22/17 at 19:30 Glucose (Glutose) 15 gm Q15M PRN PO DECREASED GLUCOSE; Start 02/22/17 at 19:30 Glucose (Glutose) 22.5 gm Q15M PRN PO DECREASED GLUCOSE; Start 02/22/17 at 19:30 Dextrose (D50w Syringe) 25 ml Q15M PRN IV DECREASED GLUCOSE; Start 02/22/17 at 19:30 Dextrose (D50w Syringe) 50 ml Q15M PRN IV DECREASED GLUCOSE; Start 02/22/17 at 19:30 Glucagon (Glucagen) 1 mg Q15M PRN IM DECREASED GLUCOSE; Start 02/22/17 at 19:30 Glucose (Glutose) 15 gm Q15M PRN BUCCAL DECREASED GLUCOSE; Start 02/22/17 at 19: 30 Lisinopril (Zestril) 40 mg DAILY PO Last administered on 02/24/17 08:32; Admin Dose 40 MG; Start 02/24/17 at 09:00 Metoprolol Tartrate (Lopressor) 50 mg BID PO Last administered on 02/24/17 08: 33; Admin Dose 50 MG; Start 02/23/17 at 21:00 Metoclopramide HCl 10 mg 10 mg Q6 IV Last administered on 02/24/17 06:24; Admin Dose 10 MG; Start 02/23/17 at 13:00; Stop 02/25/17 at 12:59 Sodium Chloride (NS) 1,000 ml @ 80 mls/hr [id number] IV Last administered on 06:26; Admin Dose 80 MLS/HR; Start 02/23/17 at 15:30 Atorvastatin Calcium (Lipitor) 80 mg HS PO ; Start 02/24/17 at 21:00 Procedures Procedures PROCEDURE: MRI Brain without contrast. CLINICAL INDICATION: Dizziness and headaches TECHNIQUE: An MRI of the brain was performed on a high resolution hi- definition 3.0 Anna MRI scanner utilizing the following sequences: Sagittal and axial T1 weighted, axial T2 weighted, sagittal T2 FLAIR, axial diffusion weighted with ADC mapping, an coronal GRE. COMPARISON: CT brain 02/22/2017 FINDINGS: The scalp and calvarium are normal. The paranasal sinuses, orbits, and bilateral mastoid air cells are normal. No extra-axial fluid collections are present. The ventricles and sulci are normal in size and configuration. No evidence of intracranial hemorrhage, mass effect or midline shift is present. On the FLAIR and T2-weighted sequences, hyperintensity is present in the left inferior cerebellar peduncle and location of the vestibular and nuclei, the left brachium pontis, bilateral periventricular white matter foci and anterior body of the corpus callosum concerning for early demyelinating disease. On diffusion weighted sequences, multiple foci of restricted diffusion are noted. Restricted diffusion is present in the left inferior cerebellar peduncular lesion within the medulla and the a the left brachium pontis concerning for acute non hemorrhagic infarcts or demyelinating disease. Follow-up brain MRI with contrast is recommended. No hypointense signal abnormalities are seen on the GRE images to suggest the presence of blood degradation products. Normal flow voids are visible in the proximal intracranial arteries and dural sinuses, indicating patency. IMPRESSION: 1. Multiple FLAIR and T2 hyperintense foci in the left inferior cerebellar peduncle and vestibular nuclei, the left brachium pontis, the bilateral periventricular white matter and body of the corpus callosum . Restricted diffusion noted in the left brachium pontis and inferior cerebellar peduncle with differential diagnosis to include acute demyelinating disease versus acute non hemorrhagic infarcts with mild microvascular ischemic disease. recommend brain MRI with contrast to further evaluate. A call report was made to Dr. England at 02/23/2017 10:00:36 PM following the completion of the examination by the undersigned. RPTAT: HDC .Dara Leblanc MD, MD Date Time Electronically viewed and signed by .Dara Leblanc MD, MD on 02/23/2017 22: 08 .C/ CC: ABDULLAHI HARDWICK Echocardiogram Report Patient Name: RAY VICKERS Gender: Male Date: 1970 Study Date: 23-Feb-2017 Regulatory Affairs Spec: [facility] Location: 509 Ref. Physician: ABDULLAHI HARDWICK Quality: Good Procedures: Transthoracic echocardiogram with complete 2D, M-Mode, and doppler examination. Indications: Hypertension. 2D/M Mode Doppler Measurement Value Normal Ranges Measurement Value Normal Ranges LVIDd 2D 4.1 3.5 - 5.6 cm AV Peak [place] 1.3 m/sec LVIDs 2D 3.0 2.1 - 4.1 cm AV Peak PG 7.0 mmHg FS 2D 27.7 % LVOT Peak [place] 1.0 m/sec LVPWd 2D 1.0 0.6 - 1.1 cm LVOT Peak PG 4.0 mmHg IVSd 2D 1.3 0.6 - 1.1 cm MV E Peak [place] 0.6 m/sec IVS/LVPW 2D 1.3 MV A Peak [place] 0.9 m/sec AoR Diam 2D 3.2 2.0 - 3.7 cm MV E/A 0.7 LA/Ao 2D 1 0 - 1 MV Decel Time 141 msec EDV 2D 69.9 cm3 MV E/A 0.7 ESV 2D 26.5 cm3 LA Dimen 2D 3.6 2.3 - 4.0 cm Findings Left Ventricle: Normal left ventricular systolic function. Normal left ventricular cavity size. Sigmoid septum. Ejection fraction is visually estimated at 60 %. Abnormal Diastolic Function. Right Ventricle: Normal right ventricular size. Normal right ventricular systolic function. Left Atrium: The left atrium is normal in size. Right Atrium: The right atrium is normal in size. Mitral Valve: Trace mitral regurgitation. Aortic Valve: Trace aortic valve regurgitation. Tricuspid Valve: Normal appearance and function of the tricuspid valve with trace physiologic regurgitation. Pulmonic Valve: There is trace pulmonic regurgitation. Pericardium: Normal pericardium with no significant pericardial effusion. Aorta: Normal aortic root. IVC: Normal size and normal respiratory collapse consistent with normal right atrial pressure. Conclusions 1. Normal left ventricular systolic function. Normal left ventricular cavity size. Sigmoid septum. Ejection fraction is visually estimated at 60 %. Abnormal Diastolic Function. 2. Trace mitral regurgitation. 3. Trace aortic valve regurgitation. 4. Normal appearance and function of the tricuspid valve with trace physiologic regurgitation. 5. There is trace pulmonic regurgitation. Electronically Signed By: Barrera Fitzpatrick 23-Feb-2017 17:47:24 -0700 Patient Name: RAY VICKERS Study Date: 23-Feb-2017 ABDULLAHI HARDWICK Feb 24, 2017 13:32
[2017-02-24] MEDS ORDERED: ATORVASTATIN 40 MG TAB PO SCH (21:00)
[2017-02-24] MEDS: ATORVASTATIN 40 MG TAB PO SCH (21:45)
[2017-02-25] VITALS (13 sets, daily range): BP systolic 131–181; BP diastolic 74–107; PULSE 64–101; RESP 16–20
[2017-02-25] MEDS: METOCLOPRAMIDE 10 MG INJ IV SCH ×3 (00:16→11:33)
[2017-02-25] MEDS: SOD CHLORIDE 0.9% 1,000 ML IV SCH (06:01)
[2017-02-25] MEDS: INSULIN ASPART [NOVOLOG] 3 ML PEN SC SCH ×4 (07:55→20:10)
[2017-02-25] MEDS: FAMOTIDINE 20 MG INJ IV SCH (08:24)
[2017-02-25] MEDS: metFORMIN 500 MG TAB PO SCH ×2 (08:24→17:30)
[2017-02-25] MEDS: DOCUSATE SODIUM 100 MG CAP PO SCH ×2 (08:25→20:10)
[2017-02-25] MEDS: LISINOPRIL 20 MG TAB PO SCH (08:25)
[2017-02-25] MEDS: CLOPIDOGREL 75 MG TAB PO SCH (08:25)
[2017-02-25] MEDS: METOPROLOL 50 MG TAB PO SCH ×3 (08:26→22:09)
[2017-02-25] MEDS: INSULIN GLARGINE [LANtus] 3 ML PEN SC SCH (08:32)
[2017-02-25 10:14] LABS: ADD SCAN DIFF NO
[2017-02-25 10:18] LABS: BASOPHIL # 0.1 10^3/ul (0.0-0.1); BASOPHILS % 0.5 % (0.0-2.0); EOSINOPHILS # 0.4 10^3/ul (0.0-0.5); EOSINOPHILS % 3.3 % (0.0-7.0); HEMATOCRIT 42.9 % (42.0-52.0); HEMOGLOBIN 14.2 g/dl (14.0-18.0); LYMPHOCYTES # 3.5 10^3/ul (0.8-2.9); LYMPHOCYTES % 27.3 % (15.0-51.0); MEAN CORPUSCULAR HEMOGLOBIN 29.2 pg (29.0-33.0); MEAN CORPUSCULAR HGB CONC 33.1 g/dl (32.0-37.0); MEAN CORPUSCULAR VOLUME 88.3 fl (82.0-101.0); MEAN PLATELET VOLUME 10.2 fl (7.4-10.4); MONOCYTE # 1.1 10^3/ul (0.3-0.9); MONOCYTES % 8.5 % (0.0-11.0); NEUTROPHIL # 7.8 10^3/ul (1.6-7.5); NEUTROPHILS % 60.2 % (39.0-77.0); PLATELET COUNT 231 10^3/UL (140-415); RED BLOOD COUNT 4.86 10^6/ul (4.70-6.10); RED CELL DISTRIBUTION WIDTH 13.4 % (11.5-14.5); WHITE BLOOD COUNT 12.9 10^3/ul (4.8-10.8)
[2017-02-25 10:30] LABS: CREATININE 0.76 mg/dl (0.61-1.24); POTASSIUM 4.5 mmol/L (3.5-5.1)
--- NOTE | 2017-02-25 11:37 | CONS ---
Date/Time of Note Date/Time of Note DATE: 02/25/17 TIME: 11:35 Consult Date/Type/Reason Admit Date/Time Feb 22, 2017 at 18:05 Initial Consult Date 02/24/17 Type of Consultation: Neurology Reason for Consultation left brachium pontis left cerebellar infarct Ordering Provider: ABDULLAHI HARDWICK Subjective dizziness is improved left eye difficulty with closure Objective Vital Signs Date Time Temp Pulse Resp B/P Pulse Ox O2 Delivery O2 Flow Rate FiO2 02/25/17 11:17 98.4 73 20 181/107 97 02/23/17 06:32 Room Air Intake and Output 02/24/17 02/24/17 02/25/17 15:00 23:00 07:00 Intake Total 900 ml Output Total 720 ml Balance 180 ml Exam awake and alert oriented x3 no aphasia follows commands well no neglect CN: LUDA, left sided nystagmus, left 7th palsy unable to wrinkle forehead with left lower facial droop as well unable to close eyelid, decreased hearing on the left ear, palate upgoing uvula midline scm/trap intact tongue midline Motor strength is 5/5 Coordination no ataxia Reflexes 1+ UE, trace AJ absent KJ toes downgoing Results/Medications Result Diagram: 02/25/17 1002 02/25/17 1002 Results 24 hrs Laboratory Tests Test 02/24/17 16:55 02/24/17 21:41 02/25/17 08:23 02/25/17 10:02 Bedside Glucose 119 111 129 White Blood Count 12.9 H Red Blood Count 4.86 Hemoglobin 14.2 Hematocrit 42.9 Mean Corpuscular Volume 88.3 Mean Corpuscular Hemoglobin 29.2 Mean Corpuscular Hemoglobin Concent 33.1 Red Cell Distribution Width 13.4 Platelet Count 231 Mean Platelet Volume 10.2 Neutrophils % 60.2 Lymphocytes % 27.3 Monocytes % 8.5 Eosinophils % 3.3 Basophils % 0.5 Nucleated Red Blood Cells % 0.0 Neutrophils # 7.8 H Lymphocytes # 3.5 H Monocytes # 1.1 H Eosinophils # 0.4 Basophils # 0.1 Nucleated Red Blood Cells # 0.0 Sodium Level 136 Potassium Level 4.5 Chloride Level 101 Carbon Dioxide Level 26 Anion Gap 14 Blood Urea Nitrogen 12 Creatinine 0.76 Glucose Level 207 Calcium Level 9.0 Medications Current Medications Clopidogrel Bisulfate (plaVIX) 75 mg DAILY PO Last administered on 02/25/17 08: 25; Admin Dose 75 MG; Start 02/23/17 at 09:00 Insulin Glargine (Lantus) 20 unit QAM SC Last administered on 02/25/17 08:32; Admin Dose 20 UNIT; Start 02/23/17 at 09:00 Hydralazine HCl (Apresoline) 10 mg Q6H PRN IV sbp>160mmhg Last administered on 02/24/17 11:18; Admin Dose 10 MG; Start 02/22/17 at 18:30 Docusate Sodium (Colace) 100 mg BID PO Last administered on 02/25/17 08:25; Admin Dose 100 MG; Start 02/22/17 at 21:00 Ondansetron HCl (Zofran Inj) 4 mg Q6H PRN IV NAUSEA AND/OR VOMITING Last administered on 02/23/17 12:40; Admin Dose 4 MG; Start 02/22/17 at 18:30 Acetaminophen (Tylenol Tab) 650 mg Q6H PRN PO PAIN AND OR ELEVATED TEMP; Start 02/22/17 at 18:30 Famotidine (Pepcid Iv) 20 mg BID IV Last administered on 02/25/17 08:24; Admin Dose 20 MG; Start 02/22/17 at 19:30 Miscellaneous Information 1 ea NOTE XX ; Start 02/22/17 at 19:30 Glucose (Glutose) 15 gm Q15M PRN PO DECREASED GLUCOSE; Start 02/22/17 at 19:30 Glucose (Glutose) 22.5 gm Q15M PRN PO DECREASED GLUCOSE; Start 02/22/17 at 19:30 Dextrose (D50w Syringe) 25 ml Q15M PRN IV DECREASED GLUCOSE; Start 02/22/17 at 19:30 Dextrose (D50w Syringe) 50 ml Q15M PRN IV DECREASED GLUCOSE; Start 02/22/17 at 19:30 Glucagon (Glucagen) 1 mg Q15M PRN IM DECREASED GLUCOSE; Start 02/22/17 at 19:30 Glucose (Glutose) 15 gm Q15M PRN BUCCAL DECREASED GLUCOSE; Start 02/22/17 at 19: 30 Lisinopril (Zestril) 40 mg DAILY PO Last administered on 02/25/17 08:25; Admin Dose 40 MG; Start 02/24/17 at 09:00 Metoprolol Tartrate (Lopressor) 50 mg BID PO Last administered on 02/25/17 08: 26; Admin Dose 50 MG; Start 02/23/17 at 21:00 Metoclopramide HCl 10 mg 10 mg Q6 IV Last administered on 02/25/17 06:03; Admin Dose 10 MG; Start 02/23/17 at 13:00; Stop 02/25/17 at 12:59 Sodium Chloride (NS) 1,000 ml @ 80 mls/hr [id number] IV Last administered on 06:01; Admin Dose 80 MLS/HR; Start 02/23/17 at 15:30 Atorvastatin Calcium (Lipitor) 80 mg HS PO Last administered on 02/24/17 21:45 ; Admin Dose 80 MG; Start 02/24/17 at 21:00 Assessment/Plan Chief Complaint/Hosp Course 46 year old M with previous history of smoking, uncontrolled hypertension, HLD presenting with persistent dizziness, MRI Brain shows restricted diffuse left brachium pontis and left inferior cerebellum likely acute infarcts, suggestion also to rule out demyelinating disease. Recommendations: -continue on plavix 75 mg daily for secondary stroke prevention -initiate Lipitor 80 mg qhs optimal LDL<70 -HBA1C target <6.5% adjust medications accordingly will order MRI Brain post contrast imaging to rule out enhancing lesions and possibility of demyelinating condition as well as MRA Head to evaluate for focal stenosis of posterior circulation -eye patch for sleeping on left eye to prevent infection, eye drops -weight loss, dietary modification -needs speech evaluation -DVT ppx Problems: MARC JAVED MD Feb 25, 2017 11:37
[2017-02-25] MEDS: hydrALAzine 20 MG INJ IV PRN (11:42)
[2017-02-25] MEDS: ARTIFICIAL TEARS 15 ML OPH LEFT EYE SCH (14:41)
--- NOTE | 2017-02-25 15:07 | PN ---
Date/Time of Note Date/Time of Note DATE: 02/25/17 TIME: 14:56 Assessment/Plan VTE Prophylaxis VTE Prophylaxis Intervention: SCD's Lines/Catheters IV Catheter Type (from Nrsg): Peripheral IV Assessment/Plan Assessment/Plan A 46-year-old male who presents to the emergency room with complaints of Intractable headache, nausea and dizziness: managed as follows: 1. Probable acute CVA however MRI also concerning for demyelinating disease 7 and 8th nerve palsies noted per neurology 2. HTN; s/p hypertensive urgency: improved control 3. Poorly controlled diabetes mellitus type 2. A1C 7.9: improving 4. Leukocytosis, likely reactive. 5. Mild metabolic acidosis, might be secondary to intractable nausea and vomiting. 6. History of transient ischemic attacks x2 in the past. 7. Dizziness and severe nausea: improving PLAN: * MRA of brain and neck ordered / appreciate neurology input, f/u recs * antiemetics/ Clear liquids / RTC reglan / stool softeners * Titrate antihypertensives for better BP control * Continue current care, will follow Subjective 24 Hr Interval Summary Free Text/Dictation Patient seen no more nausea and dizzines is improving MRI with contrast is stil pending Spoke with neurologist, continue current management till review of MRI with contrast Exam/Review of Systems Vital Signs Vitals Vital Signs Date Time Temp Pulse Resp B/P Pulse Ox O2 Delivery O2 Flow Rate FiO2 02/25/17 12:29 91 02/25/17 12:15 148/74 02/25/17 11:17 98.4 20 97 02/23/17 06:32 Room Air Intake and Output 02/24/17 02/24/17 02/25/17 15:00 23:00 07:00 Intake Total 900 ml Output Total 720 ml Balance 180 ml Exam Constitutional: alert, oriented Head: normocephalic Eyes: No EOMI (L Eye nystagmis, cannot blink L eye) ENMT: other (Deviation of angle of the mouth to the L ) Neck: supple Respiratory: clear to auscultation Cardiovascular: nl pulses, regular rate and rhythm Gastrointestinal: bowel sounds, non-tender, soft Neurological: No focal weakness Results Result Diagram: 02/25/17 1002 02/25/17 1002 Results 24 hrs Laboratory Tests Test 02/24/17 16:55 02/24/17 21:41 02/25/17 08:23 02/25/17 10:02 Bedside Glucose 119 111 129 White Blood Count 12.9 H Red Blood Count 4.86 Hemoglobin 14.2 Hematocrit 42.9 Mean Corpuscular Volume 88.3 Mean Corpuscular Hemoglobin 29.2 Mean Corpuscular Hemoglobin Concent 33.1 Red Cell Distribution Width 13.4 Platelet Count 231 Mean Platelet Volume 10.2 Neutrophils % 60.2 Lymphocytes % 27.3 Monocytes % 8.5 Eosinophils % 3.3 Basophils % 0.5 Nucleated Red Blood Cells % 0.0 Neutrophils # 7.8 H Lymphocytes # 3.5 H Monocytes # 1.1 H Eosinophils # 0.4 Basophils # 0.1 Nucleated Red Blood Cells # 0.0 Sodium Level 136 Potassium Level 4.5 Chloride Level 101 Carbon Dioxide Level 26 Anion Gap 14 Blood Urea Nitrogen 12 Creatinine 0.76 Glucose Level 207 Calcium Level 9.0 Test 02/25/17 11:43 Bedside Glucose 158 Medications Medications Current Medications Clopidogrel Bisulfate (plaVIX) 75 mg DAILY PO Last administered on 02/25/17 08: 25; Admin Dose 75 MG; Start 02/23/17 at 09:00 Insulin Glargine (Lantus) 20 unit QAM SC Last administered on 02/25/17 08:32; Admin Dose 20 UNIT; Start 02/23/17 at 09:00 Hydralazine HCl (Apresoline) 10 mg Q6H PRN IV sbp>160mmhg Last administered on 02/25/17 11:42; Admin Dose 10 MG; Start 02/22/17 at 18:30 Docusate Sodium (Colace) 100 mg BID PO Last administered on 02/25/17 08:25; Admin Dose 100 MG; Start 02/22/17 at 21:00 Ondansetron HCl (Zofran Inj) 4 mg Q6H PRN IV NAUSEA AND/OR VOMITING Last administered on 02/23/17 12:40; Admin Dose 4 MG; Start 02/22/17 at 18:30 Acetaminophen (Tylenol Tab) 650 mg Q6H PRN PO PAIN AND OR ELEVATED TEMP; Start 02/22/17 at 18:30 Famotidine (Pepcid Iv) 20 mg BID IV Last administered on 02/25/17 08:24; Admin Dose 20 MG; Start 02/22/17 at 19:30 Miscellaneous Information 1 ea NOTE XX ; Start 02/22/17 at 19:30 Glucose (Glutose) 15 gm Q15M PRN PO DECREASED GLUCOSE; Start 02/22/17 at 19:30 Glucose (Glutose) 22.5 gm Q15M PRN PO DECREASED GLUCOSE; Start 02/22/17 at 19:30 Dextrose (D50w Syringe) 25 ml Q15M PRN IV DECREASED GLUCOSE; Start 02/22/17 at 19:30 Dextrose (D50w Syringe) 50 ml Q15M PRN IV DECREASED GLUCOSE; Start 02/22/17 at 19:30 Glucagon (Glucagen) 1 mg Q15M PRN IM DECREASED GLUCOSE; Start 02/22/17 at 19:30 Glucose (Glutose) 15 gm Q15M PRN BUCCAL DECREASED GLUCOSE; Start 02/22/17 at 19: 30 Lisinopril (Zestril) 40 mg DAILY PO Last administered on 02/25/17 08:25; Admin Dose 40 MG; Start 02/24/17 at 09:00 Metoprolol Tartrate (Lopressor) 50 mg BID PO Last administered on 02/25/17 08: 26; Admin Dose 50 MG; Start 02/23/17 at 21:00 Atorvastatin Calcium (Lipitor) 80 mg HS PO Last administered on 02/24/17 21:45 ; Admin Dose 80 MG; Start 02/24/17 at 21:00 Eye Lubricant (Artificial Tears Oph) 2 drop DAILY LEFT EYE Last administered on 02/25/17 14:41; Admin Dose 2 DROP; Start 02/25/17 at 14:00 ABDULLAHI HARDWICK Feb 25, 2017 15:07
--- NOTE | 2017-02-25 18:06 | RADRPT ---
AMENDMENT: 02/25/2017 8:50:40 PM Meg Robbins M.d A call report was made and above findings were discussed and acknowledged by patient's nurse RN. Carlos espinoza on 02/22/2017 11:33 AM to relay to Dr. Berumen. PROCEDURE: MRI Brain with contrast. CLINICAL INDICATION: Dizziness. TECHNIQUE: An MRI of the brain was performed utilizing the following sequences: Following the une ventful administration of 10 cc Magnevist, postcontrast axial and coronal T1-weighted images were ob tained. Images were viewed on a PACS workstation. COMPARISON: Brain MRI 02/23/2017. FINDINGS: No abnormal intraparenchymal, meningeal or ependymal enhancement is seen. Specifically no associated enhancement corresponding to previously seen foci of signal abnormality on prior MRI. There is moderate to marked stenosis of distal right intradural vertebral artery and proximal basila r artery. IMPRESSION: 1. No intracranial enhancing abnormality. 2. Moderate to marked stenosis of distal right intradural vertebral artery and proximal basilar art angelica. CTA can be obtained for further evaluation. RPTAT: HH .Meg Robbins MD, MD Date Time Electronically viewed and signed by .Meg Robbins MD, MD on 02/25/2017 20:52 .N/
[2017-02-25] MEDS: NIFEdipine (XL) 30 MG TAB PO SCH (20:09)
[2017-02-25] MEDS: ATORVASTATIN 40 MG TAB PO SCH (20:09)
[2017-02-25] MEDS: FAMOTIDINE 20 MG TAB PO SCH (20:09)
[2017-02-25] MEDS: ASPIRIN 81 MG TAB PO SCH (22:10)
[2017-02-26] VITALS (13 sets, daily range): BP systolic 108–181; BP diastolic 61–90; PULSE 66–90; RESP 16–18
[2017-02-26] MEDS: METOPROLOL 50 MG TAB PO SCH ×3 (05:19→21:25)
[2017-02-26 06:27] LABS: ADD SCAN DIFF NO
[2017-02-26 07:12] LABS: POTASSIUM 3.9 mmol/L (3.5-5.1)
[2017-02-26 07:14] LABS: CREATININE 0.87 mg/dl (0.61-1.24)
[2017-02-26 07:15] LABS: CALCIUM 9.3 mg/dl (8.4-10.2); MAGNESIUM 1.9 mg/dl (1.7-2.5)
[2017-02-26 07:21] LABS: BASOPHIL # 0.1 10^3/ul (0.0-0.1); BASOPHILS % 0.4 % (0.0-2.0); EOSINOPHILS # 0.5 10^3/ul (0.0-0.5); EOSINOPHILS % 3.3 % (0.0-7.0); HEMATOCRIT 43.3 % (42.0-52.0); HEMOGLOBIN 14.6 g/dl (14.0-18.0); LYMPHOCYTES # 4.9 10^3/ul (0.8-2.9); LYMPHOCYTES % 33.4 % (15.0-51.0); MEAN CORPUSCULAR HEMOGLOBIN 29.3 pg (29.0-33.0); MEAN CORPUSCULAR HGB CONC 33.7 g/dl (32.0-37.0); MEAN CORPUSCULAR VOLUME 86.9 fl (82.0-101.0); MEAN PLATELET VOLUME 10.5 fl (7.4-10.4); MONOCYTE # 1.4 10^3/ul (0.3-0.9); MONOCYTES % 9.2 % (0.0-11.0); NEUTROPHIL # 7.9 10^3/ul (1.6-7.5); NEUTROPHILS % 53.4 % (39.0-77.0); PLATELET COUNT 264 10^3/UL (140-415); RED BLOOD COUNT 4.98 10^6/ul (4.70-6.10); RED CELL DISTRIBUTION WIDTH 13.1 % (11.5-14.5); WHITE BLOOD COUNT 14.7 10^3/ul (4.8-10.8)
[2017-02-26] MEDS: INSULIN GLARGINE [LANtus] 3 ML PEN SC SCH (09:11)
[2017-02-26] MEDS: INSULIN ASPART [NOVOLOG] 3 ML PEN SC SCH ×4 (09:12→21:00)
[2017-02-26] MEDS: CLOPIDOGREL 75 MG TAB PO SCH (09:15)
[2017-02-26] MEDS: metFORMIN 500 MG TAB PO SCH ×2 (09:15→18:12)
[2017-02-26] MEDS: DOCUSATE SODIUM 100 MG CAP PO SCH ×2 (09:16→21:00)
[2017-02-26] MEDS: ASPIRIN 81 MG TAB PO SCH (09:16)
[2017-02-26] MEDS: FAMOTIDINE 20 MG TAB PO SCH ×2 (09:16→21:26)
[2017-02-26] MEDS: NIFEdipine (XL) 30 MG TAB PO SCH ×2 (09:16→21:25)
[2017-02-26] MEDS: LISINOPRIL 20 MG TAB PO SCH (09:17)
[2017-02-26] MEDS: ARTIFICIAL TEARS 15 ML OPH LEFT EYE SCH (09:48)
[2017-02-26] MEDS ORDERED: METF1000 PO (12:09)
[2017-02-26] MEDS ORDERED: ASPI81TA3 PO (12:09)
[2017-02-26] MEDS ORDERED: NIFEdipine (XL) PO (12:09)
[2017-02-26] MEDS ORDERED: LISI20TA11 PO (12:09)
[2017-02-26] MEDS ORDERED: ATOR40TA68 PO (12:09)
[2017-02-26] MEDS ORDERED: METO-429 PO (12:09)
[2017-02-26] MEDS ORDERED: LANT3I SC (12:09)
--- NOTE | 2017-02-26 13:15 | PN ---
DATE: 02/26/2017 SUBJECTIVE: The patient has no further nausea. He seems to be tolerating his diet, continues to have intermittent episodes of dizziness; however. Awaiting PT as well. OBJECTIVE: VITAL SIGNS: Temperature 98.04, pulse 70, respirations 18, blood pressure 132/ 82, saturations 98% on room air. GENERAL: Alert, calm and oriented. HEENT: Head is normocephalic Pupils equal and reactive; however, the patient has a left eye nystagmus, cannot blink on the left eye, continues to have deviation of the angle of mouth to the left. Speech slightly slurred. NECK: Supple. RESPIRATORY: Clear to auscultation. CARDIOVASCULAR: S1, S2. No murmurs. ABDOMEN: Soft, nontender, nondistended. Normoactive bowel sounds. EXTREMITIES: Negative for edema. Good strength in all 4 extremities bilaterally, LABORATORIES: I reviewed his BMP, magnesium levels, blood sugar levels as well as his CBC and his only concern of findings is the persistent leukocytosis of 14 ,000. IMAGING: His MRI with contrast of the brain is back and it showed moderate to marked stenosis of the distal right intradural vertebral artery and proximal basilar artery. I spoke with the neurologist, Dr. Pickett any she recommended dual antiplatelet therapy, high dose statin and aggressive blood pressure and diabetes control and weight loss. ASSESSMENT: A 46-year-old male who had presented with: Intractable headache, nausea and dizziness with the followin. 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 2. Hypertension. 3. Diabetes type 2. A1c was 7.9. 4. Status post hypertensive urgency. 5. Leukocytosis, possibly reactive. 6. Mild metabolic acidosis secondary to intractable nausea and vomiting. 7. History of transient ischemic attacks mentioned in the past. 8. Dizziness and improving nausea. PLAN: From a neurologic standpoint, the patient has been cleared for discharge ; however, still pending is a urinalysis to ensure that his leukocytosis is just reactive. Physical therapy also is to review this patient and see what discharge disposition will be like. I suspect the patient to be stable for discharge to home with home health for PT; however, wait to see their recommendation as the patient remains symptomatic. Nursing staff to encourage ambulation and physical therapy also pending. Continue all supportive care, however. Dictated By: ABDULLAHI HARDWICK MD BA/NTS Conf#: [id number] DID#: [id number] MTDD
--- NOTE | 2017-02-26 16:18 | CONS ---
Date/Time of Note Date/Time of Note DATE: 02/26/17 TIME: 16:16 Consult Date/Type/Reason Admit Date/Time Feb 22, 2017 at 18:05 Initial Consult Date 02/24/17 Type of Consultation: Neurology Reason for Consultation left brachium pontis and cerebellar infarct Ordering Provider: ABDULLAHI HARDWICK Subjective no new complaints remains stable pending PT reevaluation Objective Vital Signs Date Time Temp Pulse Resp B/P Pulse Ox O2 Delivery O2 Flow Rate FiO2 02/26/17 16:06 90 02/26/17 15:47 98.0 18 157/90 98 02/23/17 06:32 Room Air Intake and Output 02/25/17 02/25/17 02/26/17 15:00 23:00 07:00 Intake Total 750 ml 500 ml Balance 750 ml 500 ml Exam awake and alert oriented x3 no aphasia follows commands well no neglect CN: LUDA, left sided nystagmus, left 7th palsy unable to wrinkle forehead with left lower facial droop as well unable to close eyelid, decreased hearing on the left ear, palate upgoing uvula midline scm/trap intact tongue midline Motor strength is 5/5 Coordination no ataxia Reflexes 1+ UE, trace AJ absent KJ toes downgoing Results/Medications Result Diagram: 02/26/17 0549 02/26/17 0549 Results 24 hrs Laboratory Tests Test 02/25/17 17:29 02/25/17 20:06 02/26/17 05:49 02/26/17 08:29 Bedside Glucose 112 155 150 White Blood Count 14.7 H Red Blood Count 4.98 Hemoglobin 14.6 Hematocrit 43.3 Mean Corpuscular Volume 86.9 Mean Corpuscular Hemoglobin 29.3 Mean Corpuscular Hemoglobin Concent 33.7 Red Cell Distribution Width 13.1 Platelet Count 264 Mean Platelet Volume 10.5 H Neutrophils % 53.4 Lymphocytes % 33.4 Monocytes % 9.2 Eosinophils % 3.3 Basophils % 0.4 Nucleated Red Blood Cells % 0.0 Neutrophils # 7.9 H Lymphocytes # 4.9 H Monocytes # 1.4 H Eosinophils # 0.5 Basophils # 0.1 Nucleated Red Blood Cells # 0.0 Sodium Level 140 Potassium Level 3.9 Chloride Level 99 Carbon Dioxide Level 28 Anion Gap 17 H Blood Urea Nitrogen 13 Creatinine 0.87 Glucose Level 123 # Calcium Level 9.3 Magnesium Level 1.9 Test 02/26/17 12:01 Bedside Glucose 167 Medications Current Medications Clopidogrel Bisulfate (plaVIX) 75 mg DAILY PO Last administered on 02/26/17 09: 15; Admin Dose 75 MG; Start 02/23/17 at 09:00 Hydralazine HCl (Apresoline) 10 mg Q6H PRN IV sbp>160mmhg Last administered on 02/25/17 11:42; Admin Dose 10 MG; Start 02/22/17 at 18:30 Docusate Sodium (Colace) 100 mg BID PO Last administered on 02/26/17 09:16; Admin Dose 100 MG; Start 02/22/17 at 21:00 Ondansetron HCl (Zofran Inj) 4 mg Q6H PRN IV NAUSEA AND/OR VOMITING Last administered on 02/23/17 12:40; Admin Dose 4 MG; Start 02/22/17 at 18:30 Acetaminophen (Tylenol Tab) 650 mg Q6H PRN PO PAIN AND OR ELEVATED TEMP; Start 02/22/17 at 18:30 Miscellaneous Information 1 ea NOTE XX ; Start 02/22/17 at 19:30 Glucose (Glutose) 15 gm Q15M PRN PO DECREASED GLUCOSE; Start 02/22/17 at 19:30 Glucose (Glutose) 22.5 gm Q15M PRN PO DECREASED GLUCOSE; Start 02/22/17 at 19:30 Dextrose (D50w Syringe) 25 ml Q15M PRN IV DECREASED GLUCOSE; Start 02/22/17 at 19:30 Dextrose (D50w Syringe) 50 ml Q15M PRN IV DECREASED GLUCOSE; Start 02/22/17 at 19:30 Glucagon (Glucagen) 1 mg Q15M PRN IM DECREASED GLUCOSE; Start 02/22/17 at 19:30 Glucose (Glutose) 15 gm Q15M PRN BUCCAL DECREASED GLUCOSE; Start 02/22/17 at 19: 30 Lisinopril (Zestril) 40 mg DAILY PO Last administered on 02/26/17 09:17; Admin Dose 40 MG; Start 02/24/17 at 09:00 Atorvastatin Calcium (Lipitor) 80 mg HS PO Last administered on 02/25/17 20:09 ; Admin Dose 80 MG; Start 02/24/17 at 21:00 Eye Lubricant (Artificial Tears Oph) 2 drop DAILY LEFT EYE Last administered on 02/26/17 09:48; Admin Dose 2 DROP; Start 02/25/17 at 14:00 Metoprolol Tartrate (Lopressor) 50 mg Q8 PO Last administered on 02/26/17 13:00 ; Admin Dose 50 MG; Start 02/25/17 at 15:00 Nifedipine (Procardia Xl) 30 mg BID PO Last administered on 02/26/17 09:16; Admin Dose 30 MG; Start 02/25/17 at 21:00 Famotidine (Pepcid) 20 mg BID PO Last administered on 02/26/17 09:16; Admin Dose 20 MG; Start 02/25/17 at 21:00 Aspirin (Aspirin) 81 mg DAILY PO Last administered on 02/26/17 09:16; Admin Dose 81 MG; Start 02/25/17 at 22:00 Insulin Glargine (Lantus) 23 unit QAM SC ; Start 02/27/17 at 09:00 Assessment/Plan Chief Complaint/Hosp Course 46 year old M with previous history of smoking, uncontrolled hypertension, HLD presenting with persistent dizziness, MRI Brain shows restricted diffuse left brachium pontis and left inferior cerebellum likely acute infarcts, suggestion also to rule out demyelinating disease. MRA Head shows proximal basilar stenosis Recommendations: -continue on plavix 75 mg daily and ASA 81 mg daily for secondary stroke prevention will treat with dual antiplatelet therapy for presumed intracranial atherosclerosis -initiate Lipitor 80 mg qhs optimal LDL<70 -HBA1C target <6.5% adjust medications accordingly -eye patch for sleeping on left eye to prevent infection, eye drops -weight loss, dietary modification -PT evaluation dc planning home outpatient follow up with Dr. Sanchez Problems: MARC JAVED MD Feb 26, 2017 16:18
[2017-02-26] MEDS: ATORVASTATIN 40 MG TAB PO SCH (21:26)
[2017-02-27] VITALS (10 sets, daily range): BP systolic 95–128; BP diastolic 51–80; PULSE 65–88; RESP 16–18
[2017-02-27 02:39] LABS: BARBITURATES Negative (NEGATIVE); BENZODIAZEPINES Negative (NEGATIVE); CANNABINOIDS Negative (NEGATIVE); COCAINE Negative (NEGATIVE); OPIATES Negative (NEGATIVE)
[2017-02-27] MEDS: METOPROLOL 50 MG TAB PO SCH ×2 (05:26→14:11)
[2017-02-27 06:46] LABS: ADD SCAN DIFF NO; BASOPHILS % 0.3 % (0.0-2.0); EOSINOPHILS # 0.5 10^3/ul (0.0-0.5); EOSINOPHILS % 3.7 % (0.0-7.0); HEMATOCRIT 41.5 % (42.0-52.0); LYMPHOCYTES # 4.7 10^3/ul (0.8-2.9); LYMPHOCYTES % 32.3 % (15.0-51.0); MEAN CORPUSCULAR HEMOGLOBIN 29.6 pg (29.0-33.0); MEAN CORPUSCULAR HGB CONC 33.7 g/dl (32.0-37.0); MEAN CORPUSCULAR VOLUME 87.7 fl (82.0-101.0); MEAN PLATELET VOLUME 10.7 fl (7.4-10.4); MONOCYTE # 1.2 10^3/ul (0.3-0.9); MONOCYTES % 8.4 % (0.0-11.0); NEUTROPHIL # 7.9 10^3/ul (1.6-7.5); NEUTROPHILS % 54.9 % (39.0-77.0); PLATELET COUNT 245 10^3/UL (140-415); RED BLOOD COUNT 4.73 10^6/ul (4.70-6.10); RED CELL DISTRIBUTION WIDTH 13.1 % (11.5-14.5); WHITE BLOOD COUNT 14.4 10^3/ul (4.8-10.8)
[2017-02-27 06:59] LABS: POTASSIUM 3.9 mmol/L (3.5-5.1)
[2017-02-27 07:23] LABS: CALCIUM 9.4 mg/dl (8.4-10.2); CREATININE 0.82 mg/dl (0.61-1.24)
[2017-02-27] MEDS: DOCUSATE SODIUM 100 MG CAP PO SCH (09:00)
[2017-02-27] MEDS ORDERED: INSULIN GLARGINE [LANtus] 3 ML PEN SC SCH (09:00)
[2017-02-27] MEDS: metFORMIN 500 MG TAB PO SCH (09:09)
[2017-02-27] MEDS: INSULIN ASPART [NOVOLOG] 3 ML PEN SC SCH ×2 (09:10→12:30)
[2017-02-27] MEDS: FAMOTIDINE 20 MG TAB PO SCH (09:34)
[2017-02-27] MEDS: CLOPIDOGREL 75 MG TAB PO SCH (09:35)
[2017-02-27] MEDS: NIFEdipine (XL) 30 MG TAB PO SCH (09:37)
[2017-02-27] MEDS: LISINOPRIL 20 MG TAB PO SCH (09:38)
[2017-02-27] MEDS: ARTIFICIAL TEARS 15 ML OPH LEFT EYE SCH (09:40)
--- NOTE | 2017-02-27 10:56 | PDOCDIS ---
Discharge Instructions DIAGNOSIS Discharge Diagnosis: Acute stroke CONDITION Patient Condition: Stable HOME CARE INSTRUCTIONS: Diet Instructions: Low Fat /CholesterolSpecial Diet: Carb Controlled ACTIVITY: Activity Restrictions: Slowly Increase Activity Rest between Activity FOLLOW UP/APPOINTMENTS Appointments Call Dr Sanchez's office for followup OTHER ORDERS: Other Orders: Dr. Lilliana Sanchez MD Address: [address] [place], [place] [id number] ABDULLAHI HARDWICK Feb 27, 2017 10:56
[2017-02-27] MEDS ORDERED: LANT3I SC (16:08)
--- NOTE | 2017-02-27 23:54 | RADRPT ---
PROCEDURE: MRA Brain. CLINICAL INDICATION: TECHNIQUE: An MRA of the brain was performed with and without intravenous contrast utilizing the f ollowing sequences: 3-D [id number] images through the intracranial vasculature with post process ed maximal intensity projections in multiple planes. Following the uneventful administration of 10 c c Magnevist. Post processed and maximal intensity projections were obtained and all images were rev iewed on a [employer] PACS system. COMPARISON: None. FINDINGS: There are moderate right stenosis of cavernous and supraclinoid segments of the internal carotid art eries. The petrous internal carotid artery segments are normal in caliber without evidence of signif icant stenosis. The A1 segment of left BRIGITTE is hypoplastic. The A1 segment of right BRIGITTE is patent an d gives off bilateral A2 segments which are anatomical variation. Mild narrowing of left M1 segment is noted. The proximal anterior cerebral and remainder of middle cerebral arteries are patent witho ut significant stenosis. Mild to moderate focal stenosis of bilateral posterior cerebral arteries ar e noted. Moderate to marked apparent stenosis of distal right intradural vertebral artery and proxim al basilar artery. The remainder of intradural vertebral arteries in basilar artery are patent without evidence of sign ificant focal stenosis. No aneurysms are identified. IMPRESSION: 1. Moderate to marked apparent stenosis of distal right intradural vertebral artery and proximal b asilar artery. CTA can be obtained for further evaluation. 2. Mild to moderate focal stenosis of bilateral posterior cerebral arteries. 3. Moderate right stenosis of cavernous and supraclinoid segments of the internal carotid arteries. 4. Mild narrowing of left M1 segment. A call report was made and above findings were discussed and acknowledged by patient's nurse RN. Carlos espinoza on 02/22/2017 11:33 AM to relay to Dr. Berumen. RPTAT: HFN .Meg Robbins MD, MD Date Time Electronically viewed and signed by .Meg Robbins MD, MD on 02/27/2017 23:54 .N/
--- NOTE | 2017-02-28 08:23 | DS ---
DATE OF ADMISSION: 02/22/2017 DATE OF DISCHARGE: 02/27/2017 PRESENTING COMPLAINT: Dizziness, nausea, vomiting. ADMISSION DIAGNOSES: A 46-year-old male who presents to the emergency room today with complaints of dizziness, headache, nausea, vomiting managed as follows: 1. Intractable headache and dizziness concerning for hypertensive encephalopathy versus posterior c irculation stroke in this patient. 2. Uncontrolled hypertensive urgency. 3. Poorly controlled diabetes mellitus. 4. Leukocytosis, likely reactive. 5. Mild metabolic acidosis. 6. History of transient ischemic attack x2 in the past. FINAL DIAGNOSES: 1. 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 2. Hypertension, now controlled. 3. Diabetes mellitus with good control. A1c was 7.9, however. 4. Status post hypertensive urgency. 5. Reactive leukocytosis. 6. Metabolic acidosis, resolved. 7. History of transient ischemic attack. 8. Ongoing dizziness secondary to #1 now improved. CONSULTANTS ON THE CASE: INTERVENTIONS: The patient initially had come in with evidence of intractable nausea, vomiting, diz ziness and there was concern for hypertensive encephalopathy versus posterior circulation stroke. A brain CT was unremarkable and a chest x-ray also did not really show any acute disease even though it showed some nonspecific chronic findings. Carotid Dopplers were done and they did not show hemod ynamically significant disease; however, a brain MRI did show multiple foci in the left inferior cer ebellar peduncle of hyperintense lesions and there was concern for possible acute demyelinating dise ase versus nonhemorrhagic infarct. Neurology was following along with us and she determined that th is was more likely infarct versus demyelinating disease. Based on that, she ordered the MRI with co ntrast to look for stenosis or plaques and it did come back positive for stenosis of the distal righ t intradural vertebral artery and proximal basilar artery. Neurology also reviewed these findings a longside myself and it was determined that there was no indication for intervention, so her recommen dation was to continue on Plavix 75 as well as aspirin for secondary stroke prevention and intracran ial atherosclerosis, also with high dose statin therapy and a hemoglobin A1c target of less than 6.5 , with dietary modification and outpatient followup with neurology, Dr. Sanchez. This was all c ommunicated to the patient. At this point, he is in stable condition. His dizziness has improved. His diabetes is better controlled as well as his blood pressure. He is stable on statin therapy. At this point, we are basically waiting on physical therapy evaluation; however, the patient is ambu latory and he is on , but he still has some dizziness. I am hoping the therapists can educate him in fall prevention and manage his dizziness. After that he is safe to be discharged home with [facility] for PT, speech therapy for his slurred speech, and outpatient followup with Dr. Sanchez. Evaluation time so far, I spent about 45 minutes. For clarification and further information, please review the patient's chart and my orders. Dictated By: ABDULLAHI HARDWICK MD, BA/NTS Conf#: [id number] DID#: [id number]
== END 2017-02-27 17:25 | disposition home or self-care (01) | DRG 65 ==
LOC: E/R 13:57 → TEL 18:05
PROVIDERS: ADMIT Family Medicine; ATTEND Family Medicine
DX: I63.211 Cerebral infarction due to unspecified occlusion or stenosis of right vertebral artery (principal); E87.2 Acidosis; I63.22 Cerebral infarction due to unspecified occlusion or stenosis of basilar artery; I16.0 Hypertensive urgency; E11.65 Type 2 diabetes mellitus with hyperglycemia; D72.829 Elevated white blood cell count, unspecified; Z86.73 Personal history of transient ischemic attack (TIA), and cerebral infarction without residual deficits; Z87.891 Personal history of nicotine dependence; Z82.49 Family history of ischemic heart disease and other diseases of the circulatory system; E78.5 Hyperlipidemia, unspecified; R47.1 Dysarthria and anarthria; G51.0 Bell's palsy
CPT/HCPCS: 36415; 70450; 70544; 70551; 70552; 71010; 80048; 80061; 80076; 80307; 82550; 82553; 82962; 83036; 83735; 84443; 84484; 85025; 85610; 85730; 92610; 93005; 93306; 93880; 96374; 96375; 96376; 97116; 97163; 97530; J0360; J1815; J2405; J2765; J7030